=== PATIENT | female | born 1945 | race Caucasian/White ===

== ENCOUNTER 2018-10-29 12:13 | Emergency (ER) | payer MEDICARE, OTHER ==
[~2018-10-29] VITALS: Ht 154.9 cm; Wt 70.3 kg
--- NOTE | 2018-10-29 12:25 | NUR ---
SENT FROM URGENT CARE, C/O R SHOULDER DISLOCATION S/P GLF, -KO. PATIENT A/OX4, NO DISTRESS NOTED, NEEDS ATTENDED. KEPT COMFORTABLE.
[2018-10-29] MEDS ORDERED: PROPOFOL 0 ML IV ONE (12:50)
[2018-10-29] MEDS ORDERED: MIDAZOLAM HCL 2 MG/2ML VIAL IV ONE (13:00)
[2018-10-29] MEDS ORDERED: ONDANSETRON HCL/PF 4 MG/2 ML VIAL IVP ONE (13:00)
[2018-10-29] MEDS ORDERED: IV NS 0.9% 1,000 ML BAG IV ONE (13:00)
[2018-10-29] MEDS ORDERED: FENTANYL PF 100MCG/2ML AMPUL IV ONE (13:00)
[2018-10-29] MEDS ORDERED: MORPHINE SULFATE INJ 2 MG/ML DISP.SYRIN IV ONE (13:00)
[2018-10-29] MEDS ORDERED: MIDAZOLAM HCL 5 MG/5ML VIAL ONE (13:02)
[2018-10-29] MEDS ORDERED: FENTANYL PF 100MCG/2ML AMPUL ONE (13:02)
[2018-10-29] MEDS ORDERED: ONDANSETRON HCL/PF 4 MG/2 ML VIAL ONE (13:02)
[2018-10-29] MEDS ORDERED: MORPHINE SULFATE INJ 4 MG/ML DISP.SYRIN ONE (13:03)
[2018-10-29] MEDS ORDERED: KETAMINE HCL (500MG/10ML) 50 MG/ML VIAL ONE (13:22)
--- NOTE | 2018-10-29 13:28 | NUR ---
2L OF NASAL CANNULA ADMINISTERED
[2018-10-29] MEDS ORDERED: KETAMINE HCL(200MG/20ML) 10 MG/ML VIAL IV ONE (13:30)
--- NOTE | 2018-10-29 13:30 | NUR ---
DR. MODI EXPLAINED PROCEDURE, CONSENT SIGNED BY SPOUSE FOR RIGHT SHOULDER REDUCTION. WITNESSED BY AN RN.
--- NOTE | 2018-10-29 14:58 | NUR ---
patient ambulatory with a steady gait. shoulder sling applied on right shoulder. IV removed. Catheter intact and site benign. Pressure and 4x4 applied to site. No bleeding noted.Patient discharged to home in stable condition. Written and verbal after care instructions given. Patient verbalizes understanding of instruction.
[2018-10-29 15:00] VITALS: BP 128/81
== END 2018-10-29 15:01 | disposition home or self-care (01) ==
LOC: ER 12:17
DX: S43.014A Anterior dislocation of right humerus, initial encounter (principal); I10 Essential (primary) hypertension; Z95.5 Presence of coronary angioplasty implant and graft; Z98.890 Other specified postprocedural states; W01.0XXA Fall on same level from slipping, tripping and stumbling without subsequent striking against object, initial encounter; Y93.89 Activity, other specified; Y92.89 Other specified places as the place of occurrence of the external cause; Y99.8 Other external cause status
CPT/HCPCS: 23650; 73020; 73030; 96374; 96375; 99152; 99285; J2250; J2405; J7030; G0500; J2270; J2704; J3010; J3490

== ENCOUNTER 2018-11-03 09:03 | Emergency (ER) | payer MEDICARE, OTHER ==
[~2018-11-03] VITALS: Ht 152.4 cm; Wt 71.7 kg
--- NOTE | 2018-11-03 09:13 | NUR ---
ANTOINETTE, C/O "WORSENING RIGHT ARM PAIN", WAS HERE LAST THURS FOR RIGHT SHOULDER CLOSED REDUCTION. TO ER BED 10, HOOKED TO MONITOR, PROVIDED W WARM BLANKET, AWAITING MD TREJO.
--- NOTE | 2018-11-03 09:24 | NUR ---
DR ACOSTA AT BEDSIDE
[2018-11-03] MEDS ORDERED: KETOROLAC TROMETHAMINE INJ 60 MG/2 ML VIAL IM ONE ×2 (09:30→09:32)
[2018-11-03 10:35] VITALS: BP 132/87
--- NOTE | 2018-11-03 10:35 | NUR ---
Patient discharged to home in stable condition. Written and verbal after care instructions given. Patient verbalizes understanding of instruction.
== END 2018-11-03 10:35 | disposition home or self-care (01) ==
LOC: ER 09:05
DX: M25.511 Pain in right shoulder (principal); I10 Essential (primary) hypertension; Z95.818 Presence of other cardiac implants and grafts
CPT/HCPCS: 73030; 96372; 99283; J1885

== ENCOUNTER 2022-02-12 10:44 | Inpatient (IN) | payer MEDICARE, OTHER ==
[~2022-02-12] VITALS: Ht 152.4 cm; Wt 72.6 kg
--- NOTE | 2022-02-12 10:50 | NUR ---
DR RAYA W/ PT FOR EVAL
[2022-02-12] MEDS ORDERED: FUROSEMIDE 40 MG/4 ML VIAL IV ONE (11:00)
--- NOTE | 2022-02-12 11:00 | NUR ---
BIB RA 88 FROM URGENT CARE FOR SOB/LOW O2SAT (89 ON RA). PLACED IN BED, AAOX4, BREATHING NON-LABORED SATURATING AT 97% WITH 3LIT O2 VIA NC.
[2022-02-12] MEDS ORDERED: FUROSEMIDE 40 MG/4 ML VIAL ONE (11:03)
--- NOTE | 2022-02-12 11:08 | NUR ---
TECH AT BEDSIDE FOR EKG
--- NOTE | 2022-02-12 11:16 | NUR ---
ARMOR RECONNAISSANCE SPECIALIST AT BEDSIDE FOR XRAY
--- NOTE | 2022-02-12 11:16 | NUR ---
RAPID COVID AND RAPID FLU SWABS OBTAINED AND SENT TO LAB
[2022-02-12 11:44] LABS: BASOPHILS % (AUTO) 0.4 % (0.0-2.0); EOSINOPHILS % (AUTO) 1.3 % (0.0-6.0); HEMATOCRIT 36 % (33-45); HEMOGLOBIN 11.4 g/dL (11.5-14.8); LYMPHOCYTES # (AUTO) 1.4 K/uL (0.8-4.8); LYMPHOCYTES % (AUTO) 15.5 % (20.0-44.0); MEAN CORPUSCULAR HGB CONC 32 g/dl (31.0-36.0); MEAN CORPUSCULAR VOLUME 91 fL (82-100); MONOCYTES # (AUTO) 0.7 K/uL (0.1-1.30); NEUTROPHILS # (AUTO) 6.6 K/uL (1.8-8.9); NEUTROPHILS % (AUTO) 74.8 % (43.0-81.0); PLATELET COUNT (AUTO) 183 K/uL (150-450); RED BLOOD CELL COUNT(AUTO) 3.89 MIL/uL (4.0-5.2); WHITE BLOOD COUNT (AUTO) 8.8 K/uL (4.3-11.0)
[2022-02-12] MEDS ORDERED: LEVO25TA9 PO (11:45)
[2022-02-12] MEDS ORDERED: METO25TA4 PO (11:45)
[2022-02-12] MEDS ORDERED: GUAI120L56 PO (11:45)
[2022-02-12] MEDS ORDERED: ESOM40CA52 PO (11:45)
[2022-02-12] MEDS ORDERED: INSU100I14 SQ (11:45)
[2022-02-12] MEDS ORDERED: IPRA42SP (11:45)
[2022-02-12] MEDS ORDERED: AMLO-212 PO (11:45)
[2022-02-12] MEDS ORDERED: CLON1TAB12 PO (11:45)
[2022-02-12] MEDS ORDERED: INSU100V7 SQ (11:45)
[2022-02-12] MEDS ORDERED: SEMA1PEN SQ (11:45)
[2022-02-12] MEDS ORDERED: AZIT250T13 PO (11:45)
[2022-02-12] MEDS ORDERED: RIVA10TA PO (11:45)
--- NOTE | 2022-02-12 11:55 | NUR ---
CALLED AND LEFT CONTACT NUMBER. [phone]
[2022-02-12 12:16] LABS: CALCIUM, SERUM 8.7 mg/dL (8.5-10.1); CARBON DIOXIDE 28 mmol/L (21-32); CHLORIDE 105 mmol/L (98-107); CREATININE 0.9 mg/dL (0.6-1.3); GLUCOSE 197 mg/dL (74-106); POTASSIUM 3.8 mmol/L (3.5-5.1); SODIUM SERUM 140 mmol/L (136-145); UREA NITROGEN, BLOOD 17 mg/dL (7-18)
[2022-02-12 12:38] LABS: ALANINE AMINOTRANSFERASE 15 U/L (12-78); ALBUMIN 2.8 g/dL (3.4-5.0); ALKALINE PHOSPHATASE 81 U/L (46-116); ASPARTATE AMINOTRANSFERASE 18 U/L (15-37); BILIRUBIN,DIRECT 0.1 mg/dL (0.0-0.2); BILIRUBIN,TOTAL 0.3 mg/dL (0.2-1.0); TOTAL PROTEIN, SERUM 6.3 g/dL (6.4-8.2)
[2022-02-12] MEDS ORDERED: MAG HYDROX/AL HYDROX/SIMETH 30 ML UDC PO PRN (13:30)
[2022-02-12] MEDS ORDERED: ONDANSETRON HCL/PF 4 MG/2 ML VIAL IVP PRN (13:30)
[2022-02-12] MEDS ORDERED: Z GUARD REMEDY 4 OZ OINT TP PRN (13:30)
[2022-02-12] MEDS ORDERED: ACETAMINOPHEN 325 MG TABLET PO PRN (13:30)
[2022-02-12] MEDS ORDERED: MAGNESIUM HYDROXIDE 30 ML UDC PO PRN (13:30)
[2022-02-12] MEDS ORDERED: DEXTROSE 50%-WATER 50 ML DISP.SYRIN IV PRN (14:00)
--- NOTE | 2022-02-12 14:02 | NUR ---
ROOM 310-1
--- NOTE | 2022-02-12 14:08 | NUR ---
SCAR HARDEN, FOR REPORT
--- NOTE | 2022-02-12 14:13 | NUR ---
PT REPORT GIVEN TO SCAR HARDEN
--- NOTE | 2022-02-12 14:48 | NUR ---
PT TRANSFERRED TO UNIT VIA ESTEFANI ACLS PROTOCOL. WARM HANDOFF GIVEN TO RN ASSIGNED.
[2022-02-12 14:50] VITALS: BP 131/81
--- NOTE | 2022-02-12 14:50 | NUR ---
SURVEILLANCE SYSTEMS ENGINEER NOTE PATIENT TRANSFERRED FROM ED VIA GURNEY WITH NO SIGN OF DISTRESS. ORIENTED PATIENT TO ROOM SET UP AND EDUCATED PATIENT ON THE USE OF CALL LIGHT. 77 Y/O FEMALE LIVES AT HOME WITH HER BROUGHT TO ED FOR COMPLAINING OF SOB. SHES BEING ADMITTED TELE FOR CHF. SHE HAS NKA. COVID NEGATIVE. PT HAS HAD COVID VACCINES. PRESENTS A/OX4. PT IS ON NC RECEIVING 3LPM. NO COMPLAINS OF PAIN. VS TAKEN, STABLE AND RECORDED. PLACED PT ON CARDIAC EXTERNAL MONITOR. PATIENT IS INTERACTIVE, IV ACCESS R HAND #20G, PATENT AND INTACT, SL. SKIN ASSESSMENT DONE, SKIN INTACT, BLE EDEMA WITH BRUISES AND DRYNESS NOTED, PICTURES TAKEN AND RECORDED IN CHART. ALL SAFETY PRECAUTIONS IN PLACE WITH BED IN LOWEST AND LOCKED POSITION, TABLE AND CALL LIGHT WITHIN EASY REACH. SIDE RAILS UP X 2. BED ALARM ON. WILL CONTINUE TO MONITOR.
[2022-02-12 16:00] VITALS: BP 131/81
[2022-02-12] MEDS ORDERED: RIVAROXABAN 10 MG TABLET PO SCH (17:00)
[2022-02-12] MEDS: FUROSEMIDE 20 MG/2 ML VIAL IV SCH ×2 (17:00→17:17)
[2022-02-12] MEDS ORDERED: methylPREDNISolone (4MG) 4 MG TABLET PO ONE (17:00)
--- NOTE | 2022-02-12 17:00 | NUR ---
RN NOTE PT REFUSED LASIX DOSE FOR 1700. OFFERED AND EXPLAINED THE RISKS AND BENEFITS AND THE USE OF MEDICATION. STILL REFUSING, STATED MAKING HER GO TO BATHROOM ALL NIGHT AND SHE NEEDS TO SLEEP. WILL CONTINUE TO MONITOR.
[2022-02-12] MEDS ORDERED: AZITHROMYCIN 500 MG in IV D5W 250 ML IV SCH (18:00)
[2022-02-12] MEDS: BLOOD SUGAR DIAGNOSTIC 1 EACH STRIP IN SCH ×2 (18:07→22:00)
[2022-02-12] MEDS: INSULIN REGULAR, HUMAN 100 UNIT/ML 3 ML VIAL SQ PRN ×2 (18:09→23:13)
--- NOTE | 2022-02-12 19:10 | NUR ---
BOAT ENGINE MECHANIC CLOSING NOTE PATIENT SLEEPING IN BED, EASY TO AROUSE. A/OX4, ABLE TO MAKE NEEDS KNOWN. IV ACCESS IN LEFT FOREARM #22G, AND RIGHT HAND #20G; PATENT AND FLUSHES WELL. ON EXTERNAL TELE MONITOR .NO CARDIAC DISTRESS NOTED. ON NC WITH 3LPM WITH BREATHING EVEN AND UNLABORED. DUE MEDS GIVEN. SAFETY PRECAUTIONS IN PLACE WITH BED IN LOWEST AND LOCKED POSITION, CALL LIGHT WITHIN REACH. ALL NEEDS MET AT THIS TIME. WILL ENDORSE SPIKE TO NIGHT NURSE.
[2022-02-12 20:00] VITALS: BP 143/88
--- NOTE | 2022-02-12 20:00 | NUR ---
METAL DRILL PRESS OPERATOR OPENING NOTES: RECEIVED PATIENT AWAKEIN BED ACCOMPANIED Y FAMILY, BED IN LOW POSITION, CALL LIGHTS WITHIN REACH, NO COMPLAIN OF PAIN AND DISCOMFORT AT THIS TIME , ON O2 INHALATION AT 3LPM SATURATING WELL, PATIENT ON TLEE MONITOR- SR-91 NO SYMPTOMS WAS OBSERVED, PATIENT IS A/O X3 ABLE TO MAKE NEEDS KNOWN, PATIENT KEPT CLEAN AND DRY ALL NEEDS MET WILL CONTINUE TO MONITOR.
[2022-02-12] MEDS ORDERED: clonazePAM 1 MG TABLET PO SCH (22:00)
--- NOTE | 2022-02-12 23:27 | NUR ---
RN NOTES: BLOOD SUGAR-352/8 UNITS OF REGULAR INSULIN GIVEN PER SLIDING SCALE.
[2022-02-13 04:00] VITALS: BP 124/70
[2022-02-13 06:30] LABS: BASOPHILS % (AUTO) 0.5 % (0.0-2.0); EOSINOPHILS % (AUTO) 0.6 % (0.0-6.0); HEMATOCRIT 32 % (33-45); HEMOGLOBIN 10.6 g/dL (11.5-14.8); LYMPHOCYTES # (AUTO) 0.9 K/uL (0.8-4.8); LYMPHOCYTES % (AUTO) 12.3 % (20.0-44.0); MEAN CORPUSCULAR HGB CONC 33 g/dl (31.0-36.0); MEAN CORPUSCULAR VOLUME 90 fL (82-100); MONOCYTES # (AUTO) 0.5 K/uL (0.1-1.30); MONOCYTES % (AUTO) 6.6 % (2.0-12.0); NEUTROPHILS # (AUTO) 6.2 K/uL (1.8-8.9); PLATELET COUNT (AUTO) 191 K/uL (150-450); RED BLOOD CELL COUNT(AUTO) 3.59 MIL/uL (4.0-5.2); WHITE BLOOD COUNT (AUTO) 7.7 K/uL (4.3-11.0)
[2022-02-13 06:32] LABS: CALCIUM, SERUM 8.4 mg/dL (8.5-10.1); CARBON DIOXIDE 32 mmol/L (21-32); CHLORIDE 102 mmol/L (98-107); CREATININE 0.8 mg/dL (0.6-1.3); GLUCOSE 260 mg/dL (74-106); MAGNESIUM 2.2 mg/dL (1.8-2.4); POTASSIUM 3.4 mmol/L (3.5-5.1); SODIUM SERUM 140 mmol/L (136-145); UREA NITROGEN, BLOOD 17 mg/dL (7-18)
--- NOTE | 2022-02-13 06:43 | NUR ---
CHIEF NURSE ANESTHETIST CLOSING NOTES: PATIENT SLEEP IN BED COMFORTABLY ,BED IN LOW POSITION, CALL LIGHTS WITHIN REACH, NO COMPLAIN OF PAIN AND DISCOMFORT AT THIS TIME, ON O2 INHALATION AT 2LPM SATURATING WELL, PATIENT IS A/OX3 AMBULATORY, ABLE TO MAKE NEEDS KNOWN ON TELE MONITOR- SR-94, PATIENT KEPT CLEAN AND DRY ALL NEEDS MET ENDORSE TO INCOMING SHIFT.
[2022-02-13] MEDS ORDERED: LEVOTHYROXINE SODIUM 25 MCG TABLET PO SCH (07:30)
--- NOTE | 2022-02-13 07:30 | NUR ---
CAMPAIGN ANALYST OPENING NOTE PATIENT SLEEPING IN BED, EASY TO AROUSE. A/OX4, ABLE TO MAKE NEEDS KNOWN. IV ACCESS LEFT HAND #22G ; PATENT AND FLUSHES WELL. ON EXTERNAL TELE MONITOR READING SR 87 BPM. NO CARDIAC DISTRESS NOTED. ON NC WITH 2LPM WITH BREATHING EVEN AND UNLABORED. SAFETY PRECAUTIONS IN PLACE WITH BED IN LOWEST AND LOCKED POSITION, CALL LIGHT WITHIN REACH. ALL NEEDS MET AT THIS TIME. WILL CONTINUE TO MONITOR.
[2022-02-13] MEDS: BLOOD SUGAR DIAGNOSTIC 1 EACH STRIP IN SCH ×2 (07:47→11:28)
[2022-02-13] MEDS: INSULIN REGULAR, HUMAN 100 UNIT/ML 3 ML VIAL SQ PRN ×2 (07:51→12:07)
[2022-02-13 08:00] VITALS: BP 143/75
[2022-02-13 08:01] LABS: CHOLESTEROL 99 mg/dL (<200); HDL CHOLESTEROL 52 mg/dL (40-60); LDL 38 mg/dL (0-99); TRIGLYCERIDES 154 mg/dL (30-150)
--- NOTE | 2022-02-13 08:24 | NUR ---
WOUND CARE CONSULT: PT SITTING IN A CHAIR IN HER ROOM. DRY SKIN NOTED TO LOWER LEGS, PRESENT ON ADMISSION. RECOMMENDATIONS MADE FOR SKIN PROTECTION. DISCUSSED WITH NURSING STAFF. PT IS AMBULATORY AND DENIES ANY OTHER SKIN ISSUES. MD IN AGREEMENT WITH PLAN OF CARE. Addendum: 02/13/22 at 0955 by MILEY MOISE WNDNU PT SEEN FOR ASSESSMENT OF BUTTOCKS SKIN AND NOTED TO HAVE SCANT RECTAL BLEEDING. PT STATES HAS HEMORRHOIDS. WILL SEE PRN.
[2022-02-13] MEDS: FUROSEMIDE 20 MG/2 ML VIAL IV SCH (08:55)
[2022-02-13] MEDS ORDERED: INSULIN GLARGINE, 100 UNIT/ML CARTRIDGE SQ SCH (09:00)
[2022-02-13] MEDS ORDERED: METOPROLOL SUCCINATE 25 MG TAB.SR.24H PO SCH (09:00)
[2022-02-13] MEDS ORDERED: POTASSIUM CHLORIDE 20 MEQ TAB.PRT.SR PO ONE (09:00)
[2022-02-13] MEDS ORDERED: AMLODIPINE BESYLATE 5 MG TABLET PO SCH (09:00)
[2022-02-13] MEDS ORDERED: MINERAL OIL/PETROLATUM,WHITE 120 GM JAR TP SCH (09:00)
[2022-02-13 09:27] LABS: IRON, SERUM 23 ug/dl (50-175); TOTAL IRON BINDING CAPACITY 214 ug/dl (250-450)
[2022-02-13 10:13] LABS: FERRITIN 94 ng/mL (8-388)
[2022-02-13 12:00] VITALS: BP 128/67
[2022-02-13] MEDS ORDERED: LEVO50TA8 PO (13:31)
--- NOTE | 2022-02-13 15:10 | NUR ---
BATCH TRUCKER NOTE PATIENT DISCHARGE IN STABLE MEDICAL CONDITION. A/OX4. VS TAKEN, STABLE AND RECORDED. NO IV ACCESS. NAME ARM BAND REMOVED. EXTERNAL HEARING THERAPY DIRECTOR REMOVED AND RETURNED TO TELE DESK. ALL BELONGINGS CHECKED AND BELONGING LIST SIGNED. HEALTH TEACHING AND DISCHARGE INSTRUCTION GIVEN TO THE PATIENT AND VERBALIZED UNDERSTANDING. PATIENT LEFT VIA PRIVATE CAR WITH NO SIGNS OF DISTRESS, WITH HER . CHARGE NURSE AWARE OF DISCHARGE.
== END 2022-02-13 15:50 | disposition home or self-care (01) | DRG 291 ==
LOC: ER 10:49 → TELE 14:19 → MED 02-13 14:32
PROVIDERS: ADMIT Nurse Practitioner Acute Care; ATTEND Nurse Practitioner Acute Care
DX: I11.0 Hypertensive heart disease with heart failure (principal); I50.33 Acute on chronic diastolic (congestive) heart failure; E44.1 Mild protein-calorie malnutrition; J40 Bronchitis, not specified as acute or chronic; D50.9 Iron deficiency anemia, unspecified; E03.9 Hypothyroidism, unspecified; E11.9 Type 2 diabetes mellitus without complications; E66.9 Obesity, unspecified; Z68.31 Body mass index [BMI] 31.0-31.9, adult; E88.09 Other disorders of plasma-protein metabolism, not elsewhere classified; G89.4 Chronic pain syndrome; Z86.711 Personal history of pulmonary embolism; K21.9 Gastro-esophageal reflux disease without esophagitis; R09.02 Hypoxemia; Z79.01 Long term (current) use of anticoagulants; Z79.4 Long term (current) use of insulin; Z96.643 Presence of artificial hip joint, bilateral; Z20.822 Contact with and (suspected) exposure to COVID-19; M54.50 Low back pain, unspecified; R94.6 Abnormal results of thyroid function studies
CPT/HCPCS: 36415; 71045-TC; 80048-TC; 80061-TC; 80076-TC; 82728-TC; 82962-TC; 83540-TC; 83735-TC; 83880; 84100-TC; 84439-TC; 84443-TC; 84484-TC; 85025-TC; 87081-TC; 93307-TC; 97116-TC; 97530-TC; C9803; G0378; J0456; J1815; J1940; J7050; J7060; J7509

== ENCOUNTER 2022-05-15 16:29 | Emergency (ER) | payer MEDICARE, OTHER ==
[~2022-05-15] VITALS: Ht 152.4 cm; Wt 77.6 kg
[~2022-05-15 16:29] MED LIST: AMLO-212 PO; AZIT250T13 PO; CLON1TAB12 PO; ESOM40CA52 PO; GUAI120L56 PO; INSU100I14 SQ; INSU100V7 SQ; IPRA42SP; LEVO25TA9 PO; LEVO50TA8 PO; METO25TA4 PO; RIVA10TA PO; SEMA1PEN SQ
--- NOTE | 2022-05-15 16:30 | NUR ---
RECEVED PT 77CAME FROM HOME C/O PAIN IN BOTH KNEE FOR ONE YRS DINESES HX TRUMA NO SWALLE NO EDEMA NO DIFORMITY
--- NOTE | 2022-05-15 17:00 | NUR ---
SEEN BY DR. REYES
[2022-05-15] MEDS ORDERED: KETOROLAC TROMETHAMINE INJ 60 MG/2 ML VIAL IM ONE (17:30)
[2022-05-15] MEDS ORDERED: KETOROLAC TROMETHAMINE INJ 30 MG/ML VIAL ONE (17:39)
--- NOTE | 2022-05-15 17:45 | NUR ---
TORADOLE 30 MG IM GIVEN
--- NOTE | 2022-05-15 18:15 | NUR ---
ER TORDOL WAS GIVEN PT DINESES PAIN AFT
--- NOTE | 2022-05-15 18:20 | NUR ---
Patient discharged to home in stable condition. Written and verbal after care instructions given. Patient verbalizes understanding of instruction.
[2022-05-15] MEDS ORDERED: NAPR-1192 PO (18:26)
[2022-05-15 19:43] VITALS: BP 151/88
== END 2022-05-15 19:43 | disposition home or self-care (01) ==
LOC: ER 16:33
DX: M25.562 Pain in left knee (principal); M25.561 Pain in right knee; I10 Essential (primary) hypertension; E11.9 Type 2 diabetes mellitus without complications; Z95.1 Presence of aortocoronary bypass graft; Z79.899 Other long term (current) drug therapy; Z79.4 Long term (current) use of insulin
CPT/HCPCS: 99285; 96372; J1885

== ENCOUNTER 2023-07-17 11:40 | Inpatient (IN) | payer MEDICARE, OTHER ==
[~2023-07-17] VITALS: Ht 152.4 cm; Wt 76.7 kg
[~2023-07-17 11:40] MED LIST changes: +CARB1TAB21 PO
[2023-07-17] MEDS ORDERED: ONDANSETRON HCL/PF 4 MG/2 ML VIAL ONE (12:29)
[2023-07-17] MEDS: IV NS 0.9% 1,000 ML BAG IV ONE (12:45)
[2023-07-17] MEDS: ONDANSETRON HCL/PF 4 MG/2 ML VIAL IVP ONE (12:46)
[2023-07-17 13:19] LABS: ALANINE AMINOTRANSFERASE 31 U/L (12-78); ALBUMIN 2.9 g/dL (3.4-5.0); ALKALINE PHOSPHATASE 119 U/L (46-116); ASPARTATE AMINOTRANSFERASE 34 U/L (15-37); BILIRUBIN,DIRECT 0.1 mg/dL (0.0-0.2); BILIRUBIN,TOTAL 0.2 mg/dL (0.2-1.0); CALCIUM, SERUM 9.3 mg/dL (8.5-10.1); CARBON DIOXIDE 31 mmol/L (21-32); CHLORIDE 101 mmol/L (98-107); CREATININE 1.1 mg/dL (0.6-1.3); GLUCOSE 312 mg/dL (74-106); POTASSIUM 3.8 mmol/L (3.5-5.1); SODIUM SERUM 140 mmol/L (136-145); TOTAL PROTEIN, SERUM 6.5 g/dL (6.4-8.2); UREA NITROGEN, BLOOD 35 mg/dL (7-18)
[2023-07-17 13:22] LABS: BASOPHILS # (AUTO) 0.1 K/uL (0.0-0.2); BASOPHILS % (AUTO) 0.7 % (0.0-2.0); EOSINOPHILS # (AUTO) 0.1 K/uL (0.0-0.7); EOSINOPHILS % (AUTO) 1.4 % (0.0-6.0); HEMATOCRIT 38 % (33-45); LYMPHOCYTES # (AUTO) 1.6 K/uL (0.8-4.8); LYMPHOCYTES % (AUTO) 18.4 % (20.0-44.0); MEAN CORPUSCULAR HEMOGLOBIN 30 PG (26.0-33.0); MEAN CORPUSCULAR HGB CONC 34 g/dl (31.0-36.0); MEAN CORPUSCULAR VOLUME 89 fL (82-100); MONOCYTES # (AUTO) 0.6 K/uL (0.1-1.30); MONOCYTES % (AUTO) 7.1 % (2.0-12.0); NEUTROPHILS # (AUTO) 6.1 K/uL (1.8-8.9); NEUTROPHILS % (AUTO) 72.4 % (43.0-81.0); PLATELET COUNT (AUTO) 190 K/uL (150-450); RED BLOOD CELL COUNT(AUTO) 4.32 MIL/uL (4.0-5.2); RED CELL DISTRIBUTION WIDTH 15.9 % (11.5-15.0); WHITE BLOOD COUNT (AUTO) 8.5 K/uL (4.3-11.0)
[2023-07-17 13:27] LABS: LACTIC ACID 2.1 mmol/L (0.4-2.0)
[2023-07-17] MEDS: PIPERACILLIN /TAZOBACTAM 3.375 G in IV D5W 50 ML IV ONE (13:30)
[2023-07-17 13:33] LABS: APPEARANCE,URINE CLEAR (CLEAR); BILIRUBIN,URINE NEGATIVE (NEGATIVE); BLOOD, URINE NEGATIVE Ery/uL (NEGATIVE); COLOR,URINE YELLOW (YELLOW); KETONES,URINE NEGATIVE (NEGATIVE); LEUKOCYTE ESTERASE ,URINE NEGATIVE (NEGATIVE); NITRITE, URINE NEGATIVE (NEGATIVE); PROTEIN,URINE NEGATIVE (NEGATIVE); UGLUCOSE 3+ mg/dL (NEGATIVE); UROBILINOGEN,URINE 0.2 EU/dL (0.2)
[2023-07-17 13:40] LABS: ADD URINE CULTURE NO; BACTERIA,URINE Rare /HPF (None Seen); RBC,URINE 0-2 /HPF (0-2); SQUAMOUS EPITHELIAL CELL,UR Rare /HPF (None Seen); WBC,URINE 0-2 /HPF (0-3)
[2023-07-17 13:40] LABS: INR 0.95 (0.91-1.10); PARTIAL THROMBOPLASTIN TIME 23.1 SEC (24.3-34.3); PROTHROMBIN TIME 10.1 SECS (9.2-11.1)
[2023-07-17] MEDS ORDERED: VALS80TA2 PO (14:38)
[2023-07-17] MEDS ORDERED: BUME1TAB8 PO (14:38)
[2023-07-17] MEDS ORDERED: ASPI-1420 PO (14:38)
[2023-07-17] MEDS ORDERED: [UNRECOGNIZED DRUG - OTHER] EACHEYE (14:38)
[2023-07-17] MEDS ORDERED: ESCI10TA PO (14:38)
[2023-07-17] MEDS ORDERED: GABA300C PO (14:38)
[2023-07-17] MEDS ORDERED: BUPR1FIL23 SL (14:38)
[2023-07-17] MEDS ORDERED: DOXE10OR2 PO (14:38)
[2023-07-17] MEDS ORDERED: DOXEPIN HCL 10 MG CAPSULE PO PRN (15:30)
[2023-07-17] MEDS ORDERED: ENOXAPARIN SODIUM 30 MG/0.3 ML DISP.SYRIN SQ SCH (15:30)
[2023-07-17] MEDS ORDERED: MAGNESIUM HYDROXIDE 30 ML UDC PO PRN (15:30)
[2023-07-17] MEDS ORDERED: ZOLPIDEM TARTRATE 5 MG TABLET PO PRN (15:30)
[2023-07-17] MEDS ORDERED: Z GUARD REMEDY 4 OZ OINT TP PRN (15:30)
[2023-07-17] MEDS ORDERED: DEXTROSE 50%-WATER 50 ML DISP.SYRIN IV PRN (15:30)
[2023-07-17 16:00] VITALS: BP 100/66; TEMP 97.7; O2SAT 95
[2023-07-17] MEDS: IV NS 0.9% 1,000 ML IV PRN (16:06)
[2023-07-17] MEDS: CEFTRIAXONE 1 G in IV D5W 50 ML IV SCH (16:08)
[2023-07-17 16:26] LABS: THYROID STIMULATING HORMONE 1.485 uIU/mL (0.358-3.74)
[2023-07-17] MEDS: GABAPENTIN 300 MG CAPSULE PO SCH (16:52)
[2023-07-17] MEDS: BLOOD SUGAR DIAGNOSTIC 1 EACH STRIP VI SCH (17:00)
[2023-07-17] MEDS: RIVAROXABAN 10 MG TABLET PO SCH (17:36)
[2023-07-17] MEDS: AZITHROMYCIN 500 MG in IV D5W 250 ML IV SCH (18:12)
[2023-07-17 20:00] VITALS: BP 97/60; TEMP 97.7; O2SAT 94
[2023-07-17 20:42] VITALS: BP 97/60; TEMP 97.7; O2SAT 94
[2023-07-17 20:52] VITALS: BP 108/59; O2SAT 94
[2023-07-17] MEDS: clonazePAM 1 MG TABLET PO SCH (21:24)
[2023-07-17] MEDS: *INSULIN REGULAR(HUMULIN R)HUM 100 UNIT/ML VIAL SQ PRN (21:36)
[2023-07-18 00:44] VITALS: BP 113/68; TEMP 97.3; O2SAT 97
[2023-07-18 04:44] VITALS: BP 101/60; TEMP 97.7; O2SAT 97
[2023-07-18 05:19] VITALS: O2SAT 98
[2023-07-18] MEDS: INSULIN REGULAR, HUMAN 100 UNIT/ML 3 ML VIAL SQ PRN (06:29)
[2023-07-18 07:00] VITALS: BP 118/64; TEMP 97.9; O2SAT 98
[2023-07-18 07:33] LABS: BASOPHILS # (AUTO) 0.1 K/uL (0.0-0.2); BASOPHILS % (AUTO) 0.8 % (0.0-2.0); EOSINOPHILS # (AUTO) 0.1 K/uL (0.0-0.7); EOSINOPHILS % (AUTO) 1.2 % (0.0-6.0); HEMATOCRIT 36 % (33-45); HEMOGLOBIN 11.7 g/dL (11.5-14.8); LYMPHOCYTES # (AUTO) 1.8 K/uL (0.8-4.8); LYMPHOCYTES % (AUTO) 24.3 % (20.0-44.0); MEAN CORPUSCULAR HEMOGLOBIN 29 PG (26.0-33.0); MEAN CORPUSCULAR HGB CONC 33 g/dl (31.0-36.0); MEAN CORPUSCULAR VOLUME 89 fL (82-100); MONOCYTES # (AUTO) 0.6 K/uL (0.1-1.30); MONOCYTES % (AUTO) 8.1 % (2.0-12.0); NEUTROPHILS # (AUTO) 4.9 K/uL (1.8-8.9); NEUTROPHILS % (AUTO) 65.6 % (43.0-81.0); PLATELET COUNT (AUTO) 157 K/uL (150-450); RED BLOOD CELL COUNT(AUTO) 4.02 MIL/uL (4.0-5.2); RED CELL DISTRIBUTION WIDTH 16.4 % (11.5-15.0); WHITE BLOOD COUNT (AUTO) 7.4 K/uL (4.3-11.0)
[2023-07-18 08:19] LABS: CREATININE 0.7 mg/dL (0.6-1.3); PHOSPHORUS 3.1 mg/dL (2.5-4.9); POTASSIUM 3.8 mmol/L (3.5-5.1)
[2023-07-18] MEDS: PANTOPRAZOLE 40 MG TABLET.DR PO SCH (08:40)
[2023-07-18] MEDS: ESCITALOPRAM OXALATE (10 MG) 10 MG TABLET PO SCH (08:40)
[2023-07-18] MEDS: ASPIRIN EC 81 MG TABLET.DR PO SCH (08:41)
[2023-07-18] MEDS: INSULIN GLARGINE, 100 UNIT/ML CARTRIDGE SQ SCH (08:43)
[2023-07-18] MEDS: MAG HYDROX/AL HYDROX/SIMETH 30 ML UDC PO PRN (11:01)
[2023-07-18] MEDS: ACETAMINOPHEN 325 MG TABLET PO PRN (11:01)
[2023-07-18 16:00] VITALS: BP 160/77; TEMP 98.6; O2SAT 93
[2023-07-18] MEDS: ONDANSETRON HCL/PF 4 MG/2 ML VIAL IVP PRN (17:55)
[2023-07-18 20:00] VITALS: BP 139/67; TEMP 98.4; O2SAT 92
[2023-07-19 06:37] LABS: BASOPHILS % (AUTO) 0.7 % (0.0-2.0); EOSINOPHILS # (AUTO) 0.1 K/uL (0.0-0.7); EOSINOPHILS % (AUTO) 2.7 % (0.0-6.0); HEMATOCRIT 35 % (33-45); HEMOGLOBIN 11.7 g/dL (11.5-14.8); LYMPHOCYTES # (AUTO) 1.2 K/uL (0.8-4.8); LYMPHOCYTES % (AUTO) 21.7 % (20.0-44.0); MEAN CORPUSCULAR HEMOGLOBIN 30 PG (26.0-33.0); MEAN CORPUSCULAR HGB CONC 33 g/dl (31.0-36.0); MEAN CORPUSCULAR VOLUME 89 fL (82-100); MONOCYTES # (AUTO) 0.4 K/uL (0.1-1.30); MONOCYTES % (AUTO) 7.8 % (2.0-12.0); NEUTROPHILS # (AUTO) 3.6 K/uL (1.8-8.9); NEUTROPHILS % (AUTO) 67.1 % (43.0-81.0); PLATELET COUNT (AUTO) 153 K/uL (150-450); RED BLOOD CELL COUNT(AUTO) 3.94 MIL/uL (4.0-5.2); RED CELL DISTRIBUTION WIDTH 15.7 % (11.5-15.0); WHITE BLOOD COUNT (AUTO) 5.4 K/uL (4.3-11.0)
[2023-07-19 06:55] LABS: ALBUMIN 2.2 g/dL (3.4-5.0); BILIRUBIN,TOTAL 0.3 mg/dL (0.2-1.0); CALCIUM, SERUM 8.7 mg/dL (8.5-10.1); CREATININE 0.7 mg/dL (0.6-1.3); MAGNESIUM 2.4 mg/dL (1.8-2.4); PHOSPHORUS 2.6 mg/dL (2.5-4.9); TOTAL PROTEIN, SERUM 5.3 g/dL (6.4-8.2)
[2023-07-19 08:00] VITALS: BP 150/93; TEMP 98.1; O2SAT 95
[2023-07-19] MEDS: BUMETANIDE (1 MG) 1 MG TABLET PO SCH (11:31)
[2023-07-19] MEDS: METOPROLOL SUCCINATE 25 MG TAB.SR.24H PO SCH (11:32)
[2023-07-19] MEDS: VALSARTAN 80 MG TABLET PO SCH (11:32)
[2023-07-19] MEDS: AZITHROMYCIN 250 MG TABLET PO SCH (17:04)
[2023-07-19 20:00] VITALS: BP 143/69; TEMP 98.6; O2SAT 92
[2023-07-19] MEDS: AMLODIPINE BESYLATE 5 MG TABLET PO SCH (21:19)
[2023-07-20 07:00] VITALS: BP 141/88; TEMP 99; O2SAT 94
[2023-07-20] MEDS: HYDROCODONE/APAP 5/325MG TABLET PO PRN (11:15)
[2023-07-20] MEDS: KETOROLAC TROMETHAMINE INJ 30 MG/ML VIAL IV STA (12:42)
[2023-07-20 16:00] VITALS: BP 149/92; TEMP 98.9; O2SAT 94
[2023-07-20] MEDS: KETOROLAC TROMETHAMINE INJ 30 MG/ML VIAL IV ONE (18:14)
[2023-07-20 20:00] VITALS: BP 166/77; TEMP 98.4; O2SAT 95
[2023-07-21] MEDS: SUMATRIPTAN SUCCINATE 25 MG TABLET PO PRN (06:39)
[2023-07-21] MEDS ORDERED: SUMATRIPTAN SUCCINATE 100 MG TABLET PO PRN (07:00)
[2023-07-21 08:02] VITALS: O2SAT 97
[2023-07-21 08:15] VITALS: BP 146/89; TEMP 98.2; O2SAT 97
[2023-07-21] MEDS: VALSARTAN 80 MG TABLET PO SCH (08:51)
[2023-07-21] MEDS: METOPROLOL SUCCINATE 50 MG TAB.SR.24H PO SCH (08:52)
[2023-07-21 16:53] VITALS: BP_SYST 142; BP_SYST 147; BP_DIAS 78; TEMP 98.6; O2SAT 94
[2023-07-21 20:00] VITALS: BP 132/79; TEMP 98.2; O2SAT 93; O2SAT 95
[2023-07-22 04:52] VITALS: O2SAT 98
[2023-07-22 08:26] VITALS: BP 147/90; TEMP 98.3; O2SAT 96
[2023-07-22 08:27] VITALS: BP 147/90
[2023-07-22] MEDS ORDERED: CEFT1FRO2 IV (09:48)
[2023-07-22] MEDS ORDERED: SUMA25TA PO (09:48)
[2023-07-22] MEDS ORDERED: METO50TA7 PO (09:48)
[2023-07-22] MEDS ORDERED: VALS80TA31 PO (09:48)
[2023-07-22] MEDS ORDERED: Aspirin Ec PO (09:48)
[2023-07-22] MEDS ORDERED: PANT40TA49 PO (09:48)
[2023-07-22] MEDS ORDERED: INSU100V28 SQ (09:50)
[2023-07-22] MEDS ORDERED: *INS REG SQ (09:50)
[2023-07-22] MEDS ORDERED: LORAZEPAM INJ 2 MG/ML VIAL IV ONE ×2 (12:00)
[2023-07-22] MEDS: LORAZEPAM 1 MG TABLET PO ONE (12:09)
== END 2023-07-22 13:15 | DRG 871 ==
LOC: ER 12:25 → TELE 14:56 → MED 07-18 19:54
PROVIDERS: ATTEND Nurse Practitioner Acute Care
DX: A41.9 Sepsis, unspecified organism (principal); J15.9 Unspecified bacterial pneumonia; E44.0 Moderate protein-calorie malnutrition; E66.2 Morbid (severe) obesity with alveolar hypoventilation; E87.20 Acidosis, unspecified; I25.10 Atherosclerotic heart disease of native coronary artery without angina pectoris; Z95.5 Presence of coronary angioplasty implant and graft; E03.9 Hypothyroidism, unspecified; E11.65 Type 2 diabetes mellitus with hyperglycemia; E88.09 Other disorders of plasma-protein metabolism, not elsewhere classified; F41.9 Anxiety disorder, unspecified; G44.209 Tension-type headache, unspecified, not intractable; G89.29 Other chronic pain; Z79.01 Long term (current) use of anticoagulants; Z79.4 Long term (current) use of insulin; Z86.711 Personal history of pulmonary embolism; Z95.2 Presence of prosthetic heart valve; Z68.33 Body mass index [BMI] 33.0-33.9, adult; R53.1 Weakness; R26.89 Other abnormalities of gait and mobility; I10 Essential (primary) hypertension
CPT/HCPCS: 36415; 70450-TC; 71045-TC; 80048-TC; 80053-TC; 80061-TC; 80076-TC; 81001; 82962-TC; 83605-TC; 83735-TC; 84100-TC; 84443-TC; 84484-TC; 85025-TC; 85730-TC; 87040-TC; 87086-TC; 94760-TC; 94762-TC; 94799-TC; 97110-TC; 97112-TC; 97116-TC; 97530-TC; A4223; G0378; J0456; J0696; J1815; J1885; J2405; J2543; J7030; J7040; J7060

== ENCOUNTER 2023-09-22 08:21 | Inpatient (IN) | payer MEDICARE, OTHER ==
[~2023-09-22] VITALS: Ht 152.4 cm; Wt 66.8 kg
[~2023-09-22 08:21] MED LIST changes: +*INS REG SQ; -AZIT250T13 PO; +Aspirin Ec PO; +BUME1TAB8 PO; +BUPR1FIL23 SL; -CARB1TAB21 PO; +CEFT1FRO2 IV; +DOXE10OR2 PO; +ESCI10TA PO; +GABA300C PO; -GUAI120L56 PO; +INSU100V28 SQ; -IPRA42SP; -LEVO25TA9 PO; -LEVO50TA8 PO; +METO50TA7 PO; +PANT40TA49 PO; +SUMA25TA PO; +VALS80TA2 PO; +VALS80TA31 PO; +[UNRECOGNIZED DRUG - OTHER] EACHEYE
[2023-09-22] MEDS ORDERED: ONDANSETRON HCL/PF 4 MG/2 ML VIAL ONE (08:42)
[2023-09-22] MEDS ORDERED: MORPHINE SULFATE INJ 2 MG/ML DISP.SYRIN ONE (08:43)
[2023-09-22] MEDS: IV NS 0.9% 500 ML BAG IV ONE (08:47)
[2023-09-22] MEDS: MORPHINE SULFATE INJ 2 MG/ML DISP.SYRIN IV ONE (08:48)
[2023-09-22] MEDS: ONDANSETRON HCL/PF 4 MG/2 ML VIAL IVP ONE (08:48)
[2023-09-22] MEDS ORDERED: IV NS 0.9% 250 ML IV ONE (08:55)
[2023-09-22] MEDS ORDERED: IOHEXOL-300 100 ML VIAL IV ONE (08:55)
[2023-09-22 08:59] LABS: BASOPHILS # (AUTO) 0.1 K/uL (0.0-0.2); BASOPHILS % (AUTO) 0.8 % (0.0-2.0); EOSINOPHILS # (AUTO) 0.2 K/uL (0.0-0.7); EOSINOPHILS % (AUTO) 2.4 % (0.0-6.0); HEMATOCRIT 41 % (33-45); HEMOGLOBIN 13.6 g/dL (11.5-14.8); LYMPHOCYTES # (AUTO) 1.4 K/uL (0.8-4.8); LYMPHOCYTES % (AUTO) 16.9 % (20.0-44.0); MEAN CORPUSCULAR HEMOGLOBIN 30 PG (26.0-33.0); MEAN CORPUSCULAR HGB CONC 33 g/dl (31.0-36.0); MEAN CORPUSCULAR VOLUME 92 fL (82-100); MONOCYTES # (AUTO) 0.6 K/uL (0.1-1.30); MONOCYTES % (AUTO) 7.5 % (2.0-12.0); NEUTROPHILS # (AUTO) 5.9 K/uL (1.8-8.9); NEUTROPHILS % (AUTO) 72.4 % (43.0-81.0); PLATELET COUNT (AUTO) 228 K/uL (150-450); RED BLOOD CELL COUNT(AUTO) 4.49 MIL/uL (4.0-5.2); RED CELL DISTRIBUTION WIDTH 16.3 % (11.5-15.0); WHITE BLOOD COUNT (AUTO) 8.2 K/uL (4.3-11.0)
[2023-09-22 09:14] LABS: ALANINE AMINOTRANSFERASE 15 U/L (12-78); ALKALINE PHOSPHATASE 75 U/L (46-116); ASPARTATE AMINOTRANSFERASE 16 U/L (15-37); BILIRUBIN,DIRECT 0.1 mg/dL (0.0-0.2); BILIRUBIN,TOTAL 0.5 mg/dL (0.2-1.0); CALCIUM, SERUM 9.7 mg/dL (8.5-10.1); CARBON DIOXIDE 33 mmol/L (21-32); CHLORIDE 106 mmol/L (98-107); CREATININE 0.9 mg/dL (0.6-1.3); GLUCOSE 136 mg/dL (74-106); LIPASE 15 U/L (16-77); POTASSIUM 3.6 mmol/L (3.5-5.1); SODIUM SERUM 145 mmol/L (136-145); TOTAL PROTEIN, SERUM 6.8 g/dL (6.4-8.2); UREA NITROGEN, BLOOD 26 mg/dL (7-18)
[2023-09-22 09:16] LABS: LACTIC ACID 1.7 mmol/L (0.4-2.0)
[2023-09-22 10:42] VITALS: O2SAT 97
[2023-09-22 10:48] LABS: APPEARANCE,URINE CLEAR (CLEAR); BILIRUBIN,URINE NEGATIVE (NEGATIVE); BLOOD, URINE NEGATIVE Ery/uL (NEGATIVE); COLOR,URINE YELLOW (YELLOW); KETONES,URINE NEGATIVE (NEGATIVE); LEUKOCYTE ESTERASE ,URINE NEGATIVE (NEGATIVE); NITRITE, URINE NEGATIVE (NEGATIVE); PH,URINE 7.5 (5.0-8.0); PROTEIN,URINE TRACE mg/dl (NEGATIVE); UGLUCOSE NEGATIVE (NEGATIVE)
[2023-09-22 10:59] LABS: ADD URINE CULTURE YES; BACTERIA,URINE Moderate /HPF (None Seen); RBC,URINE NONE SEEN /HPF (0-2); WBC,URINE 0-2 /HPF (0-3)
[2023-09-22 11:00] LABS: SQUAMOUS EPITHELIAL CELL,UR Few /HPF (None Seen)
[2023-09-22] MEDS ORDERED: Z GUARD REMEDY 4 OZ OINT TP PRN (11:30)
[2023-09-22] MEDS ORDERED: ONDANSETRON HCL/PF 4 MG/2 ML VIAL IVP PRN (11:30)
[2023-09-22] MEDS: PANTOPRAZOLE 40 MG TABLET.DR PO SCH (11:52)
[2023-09-22] MEDS ORDERED: DEXTROSE 50%-WATER 50 ML DISP.SYRIN IV PRN (12:00)
[2023-09-22] MEDS: BLOOD SUGAR DIAGNOSTIC 1 EACH STRIP IN SCH (12:03)
[2023-09-22] MEDS: HYDROCODONE/APAP 5/325MG TABLET PO PRN (13:55)
[2023-09-22] MEDS ORDERED: CLON0.5T4 PO (15:06)
[2023-09-22] MEDS ORDERED: METF-440 PO (15:06)
[2023-09-22 16:02] VITALS: BP 142/69; TEMP 97.7; O2SAT 93
[2023-09-22] MEDS: RIVAROXABAN 10 MG TABLET PO SCH (17:16)
[2023-09-22] MEDS: GABAPENTIN 300 MG CAPSULE PO SCH (17:17)
[2023-09-22] MEDS: INSULIN REGULAR, HUMAN 100 UNIT/ML 3 ML VIAL SQ PRN (17:31)
[2023-09-22] MEDS: ACETAMINOPHEN 325 MG TABLET PO PRN (17:31)
[2023-09-22] MEDS: IV NS 0.9% 1,000 ML IV PRN (18:18)
[2023-09-22 20:00] VITALS: BP_SYST 113; BP_DIAS 32; BP_DIAS 62; TEMP 98.2; O2SAT 94
[2023-09-22] MEDS: AMLODIPINE BESYLATE 5 MG TABLET PO SCH (21:50)
[2023-09-22] MEDS: clonazePAM 0.5 MG TABLET PO SCH (21:51)
[2023-09-23 06:52] LABS: BASOPHILS % (AUTO) 0.7 % (0.0-2.0); EOSINOPHILS # (AUTO) 0.1 K/uL (0.0-0.7); EOSINOPHILS % (AUTO) 1.9 % (0.0-6.0); HEMATOCRIT 37 % (33-45); HEMOGLOBIN 12.3 g/dL (11.5-14.8); LYMPHOCYTES # (AUTO) 1.5 K/uL (0.8-4.8); LYMPHOCYTES % (AUTO) 20.7 % (20.0-44.0); MEAN CORPUSCULAR HEMOGLOBIN 31 PG (26.0-33.0); MEAN CORPUSCULAR HGB CONC 33 g/dl (31.0-36.0); MEAN CORPUSCULAR VOLUME 92 fL (82-100); MONOCYTES # (AUTO) 0.5 K/uL (0.1-1.30); MONOCYTES % (AUTO) 7.4 % (2.0-12.0); NEUTROPHILS # (AUTO) 5.1 K/uL (1.8-8.9); NEUTROPHILS % (AUTO) 69.3 % (43.0-81.0); PLATELET COUNT (AUTO) 195 K/uL (150-450); RED BLOOD CELL COUNT(AUTO) 4.02 MIL/uL (4.0-5.2); RED CELL DISTRIBUTION WIDTH 16.2 % (11.5-15.0); WHITE BLOOD COUNT (AUTO) 7.4 K/uL (4.3-11.0)
[2023-09-23 07:19] LABS: CALCIUM, SERUM 8.9 mg/dL (8.5-10.1); CARBON DIOXIDE 25 mmol/L (21-32); CHLORIDE 107 mmol/L (98-107); CREATININE 0.8 mg/dL (0.6-1.3); GLUCOSE 256 mg/dL (74-106); PHOSPHORUS 2.6 mg/dL (2.5-4.9); POTASSIUM 3.6 mmol/L (3.5-5.1); SODIUM SERUM 143 mmol/L (136-145); UREA NITROGEN, BLOOD 22 mg/dL (7-18)
[2023-09-23] MEDS ORDERED: PANTOPRAZOLE 40 MG TABLET.DR PO SCH (07:30)
[2023-09-23 07:41] LABS: CHOLESTEROL 142 mg/dL (<200); HDL CHOLESTEROL 46 mg/dL (40-60); LDL 69 mg/dL (0-99); TRIGLYCERIDES 157 mg/dL (30-150)
[2023-09-23] MEDS: VALSARTAN 80 MG TABLET PO SCH (09:01)
[2023-09-23] MEDS: METOPROLOL SUCCINATE 50 MG TAB.SR.24H PO SCH (09:01)
[2023-09-23] MEDS: ESCITALOPRAM OXALATE (10 MG) 10 MG TABLET PO SCH (09:02)
[2023-09-23] MEDS: INSULIN GLARGINE, 100 UNIT/ML CARTRIDGE SQ SCH (09:07)
[2023-09-23 16:00] VITALS: BP 126/72; TEMP 98.1; O2SAT 93
[2023-09-23 20:25] VITALS: BP 112/69; TEMP 97.9; O2SAT 97
[2023-09-24] MEDS: KETOROLAC TROMETHAMINE 15 MG/ML VIAL IV PRN (06:45)
[2023-09-24 06:59] LABS: BASOPHILS # (AUTO) 0.1 K/uL (0.0-0.2); BASOPHILS % (AUTO) 0.7 % (0.0-2.0); EOSINOPHILS # (AUTO) 0.1 K/uL (0.0-0.7); EOSINOPHILS % (AUTO) 1.7 % (0.0-6.0); HEMATOCRIT 35 % (33-45); HEMOGLOBIN 11.5 g/dL (11.5-14.8); LYMPHOCYTES # (AUTO) 1.1 K/uL (0.8-4.8); LYMPHOCYTES % (AUTO) 13.5 % (20.0-44.0); MEAN CORPUSCULAR HEMOGLOBIN 31 PG (26.0-33.0); MEAN CORPUSCULAR HGB CONC 33 g/dl (31.0-36.0); MEAN CORPUSCULAR VOLUME 94 fL (82-100); MONOCYTES # (AUTO) 0.5 K/uL (0.1-1.30); MONOCYTES % (AUTO) 6.7 % (2.0-12.0); NEUTROPHILS # (AUTO) 6.3 K/uL (1.8-8.9); NEUTROPHILS % (AUTO) 77.4 % (43.0-81.0); PLATELET COUNT (AUTO) 144 K/uL (150-450); RED BLOOD CELL COUNT(AUTO) 3.74 MIL/uL (4.0-5.2); RED CELL DISTRIBUTION WIDTH 16.2 % (11.5-15.0); WHITE BLOOD COUNT (AUTO) 8.1 K/uL (4.3-11.0)
[2023-09-24 07:17] LABS: CALCIUM, SERUM 8.6 mg/dL (8.5-10.1); CARBON DIOXIDE 28 mmol/L (21-32); CHLORIDE 110 mmol/L (98-107); CREATININE 0.6 mg/dL (0.6-1.3); GLUCOSE 204 mg/dL (74-106); PHOSPHORUS 1.9 mg/dL (2.5-4.9); POTASSIUM 3.6 mmol/L (3.5-5.1); SODIUM SERUM 143 mmol/L (136-145); UREA NITROGEN, BLOOD 16 mg/dL (7-18)
[2023-09-24 08:00] VITALS: BP 131/69; TEMP 98.1; O2SAT 95
[2023-09-24] MEDS: MAG HYDROX/AL HYDROX/SIMETH 30 ML UDC PO PRN (14:36)
[2023-09-24] MEDS: DOCUSATE SODIUM 100 MG CAPSULE PO SCH (14:37)
[2023-09-24] MEDS: K PHOS NEUTRAL 250 MG TABLET PO ONE (15:49)
[2023-09-24 16:00] VITALS: BP 152/75; TEMP 98.5; O2SAT 96
[2023-09-24 20:00] VITALS: BP 131/73; TEMP 97.7; O2SAT 97
[2023-09-25] MEDS: MAGNESIUM HYDROXIDE 30 ML UDC PO PRN (05:52)
[2023-09-25 06:52] LABS: BASOPHILS # (AUTO) 0.1 K/uL (0.0-0.2); BASOPHILS % (AUTO) 0.9 % (0.0-2.0); EOSINOPHILS # (AUTO) 0.2 K/uL (0.0-0.7); EOSINOPHILS % (AUTO) 2.4 % (0.0-6.0); HEMATOCRIT 38 % (33-45); HEMOGLOBIN 12.6 g/dL (11.5-14.8); LYMPHOCYTES # (AUTO) 1.7 K/uL (0.8-4.8); LYMPHOCYTES % (AUTO) 23.4 % (20.0-44.0); MEAN CORPUSCULAR HEMOGLOBIN 31 PG (26.0-33.0); MEAN CORPUSCULAR HGB CONC 33 g/dl (31.0-36.0); MEAN CORPUSCULAR VOLUME 92 fL (82-100); MONOCYTES # (AUTO) 0.5 K/uL (0.1-1.30); MONOCYTES % (AUTO) 6.6 % (2.0-12.0); NEUTROPHILS # (AUTO) 4.8 K/uL (1.8-8.9); NEUTROPHILS % (AUTO) 66.7 % (43.0-81.0); PLATELET COUNT (AUTO) 198 K/uL (150-450); RED BLOOD CELL COUNT(AUTO) 4.12 MIL/uL (4.0-5.2); RED CELL DISTRIBUTION WIDTH 15.9 % (11.5-15.0); WHITE BLOOD COUNT (AUTO) 7.2 K/uL (4.3-11.0)
[2023-09-25 07:16] LABS: CALCIUM, SERUM 9.2 mg/dL (8.5-10.1); CARBON DIOXIDE 28 mmol/L (21-32); CHLORIDE 107 mmol/L (98-107); CREATININE 0.7 mg/dL (0.6-1.3); GLUCOSE 162 mg/dL (74-106); PHOSPHORUS 2.2 mg/dL (2.5-4.9); POTASSIUM 3.4 mmol/L (3.5-5.1); SODIUM SERUM 142 mmol/L (136-145); UREA NITROGEN, BLOOD 13 mg/dL (7-18)
[2023-09-25 08:00] VITALS: BP 158/83; TEMP 97.9; O2SAT 95
[2023-09-25] MEDS: POTASSIUM CHLORIDE 20 MEQ POWDER PACKET NG SCH (11:05)
[2023-09-25] MEDS: K PHOS NEUTRAL 250 MG TABLET PO ONE (15:41)
[2023-09-25 16:00] VITALS: BP 156/89; TEMP 98.5; O2SAT 97
[2023-09-25] MEDS: hydrALAZINE HCL 25 MG TABLET PO PRN (17:43)
[2023-09-25 20:22] VITALS: BP 145/81; TEMP 97.2; O2SAT 95
[2023-09-26 06:59] LABS: BASOPHILS # (AUTO) 0.1 K/uL (0.0-0.2); BASOPHILS % (AUTO) 0.9 % (0.0-2.0); EOSINOPHILS # (AUTO) 0.1 K/uL (0.0-0.7); EOSINOPHILS % (AUTO) 2.4 % (0.0-6.0); HEMATOCRIT 36 % (33-45); HEMOGLOBIN 11.9 g/dL (11.5-14.8); LYMPHOCYTES # (AUTO) 1.4 K/uL (0.8-4.8); LYMPHOCYTES % (AUTO) 22.1 % (20.0-44.0); MEAN CORPUSCULAR HEMOGLOBIN 31 PG (26.0-33.0); MEAN CORPUSCULAR HGB CONC 34 g/dl (31.0-36.0); MEAN CORPUSCULAR VOLUME 92 fL (82-100); MONOCYTES # (AUTO) 0.6 K/uL (0.1-1.30); NEUTROPHILS % (AUTO) 65.6 % (43.0-81.0); PLATELET COUNT (AUTO) 180 K/uL (150-450); RED BLOOD CELL COUNT(AUTO) 3.87 MIL/uL (4.0-5.2); WHITE BLOOD COUNT (AUTO) 6.2 K/uL (4.3-11.0)
[2023-09-26 07:38] LABS: CALCIUM, SERUM 9.4 mg/dL (8.5-10.1); CARBON DIOXIDE 26 mmol/L (21-32); CHLORIDE 109 mmol/L (98-107); CREATININE 0.6 mg/dL (0.6-1.3); GLUCOSE 107 mg/dL (74-106); MAGNESIUM 2.6 mg/dL (1.8-2.4); PHOSPHORUS 2.8 mg/dL (2.5-4.9); POTASSIUM 3.7 mmol/L (3.5-5.1); SODIUM SERUM 145 mmol/L (136-145); UREA NITROGEN, BLOOD 15 mg/dL (7-18)
[2023-09-26 08:00] VITALS: BP 144/82; TEMP 98.4; O2SAT 96
[2023-09-26 09:08] VITALS: BP 144/82
[2023-09-26] MEDS: POLYETHYLENE GLYCOL 3350 17 GM POWD.PACK PO PRN (11:50)
== END 2023-09-26 14:00 | DRG 392 ==
LOC: ER 08:27 → TELE 10:45 → MED 11:22
PROVIDERS: ADMIT Nurse Practitioner Acute Care; ATTEND Student in an Organized Health Care Education/Training Program
DX: K21.9 Gastro-esophageal reflux disease without esophagitis (principal); E11.40 Type 2 diabetes mellitus with diabetic neuropathy, unspecified; I25.10 Atherosclerotic heart disease of native coronary artery without angina pectoris; N28.1 Cyst of kidney, acquired; D18.03 Hemangioma of intra-abdominal structures; E03.9 Hypothyroidism, unspecified; E66.9 Obesity, unspecified; F32.A Depression, unspecified; Z79.4 Long term (current) use of insulin; I10 Essential (primary) hypertension; Z86.711 Personal history of pulmonary embolism; Z95.2 Presence of prosthetic heart valve; R53.1 Weakness; D35.02 Benign neoplasm of left adrenal gland; N20.0 Calculus of kidney; E86.0 Dehydration; Z68.28 Body mass index [BMI] 28.0-28.9, adult
CPT/HCPCS: 36415; 71045-TC; 80048-TC; 80061-TC; 80076-TC; 81001; 82962-TC; 83605-TC; 83690-TC; 83735-TC; 84100-TC; 84443-TC; 85025-TC; 87040-TC; 87086-TC; 97110-TC; 97116-TC; 97530-TC; 97535-TC; A4223; G0378; J1815; J1885; J2270; J2405; J7030; J7040; J7050; Q9967

== ENCOUNTER 2023-11-07 11:20 | Emergency (ER) | payer MEDICARE, OTHER ==
[~2023-11-07] VITALS: Ht 152.4 cm; Wt 70.3 kg
[~2023-11-07 11:20] MED LIST changes: -*INS REG SQ; -Aspirin Ec PO; -BUME1TAB8 PO; -CEFT1FRO2 IV; +CLON0.5T4 PO; -CLON1TAB12 PO; -DOXE10OR2 PO; -ESOM40CA52 PO; -INSU100I14 SQ; -INSU100V28 SQ; +METF-440 PO; -METO25TA4 PO; -SEMA1PEN SQ; -SUMA25TA PO; -VALS80TA2 PO; -[UNRECOGNIZED DRUG - OTHER] EACHEYE
[2023-11-07 13:00] LABS: CALCIUM, SERUM 8.6 mg/dL (8.5-10.1); CARBON DIOXIDE 32 mmol/L (21-32); CHLORIDE 106 mmol/L (98-107); CREATININE 0.7 mg/dL (0.6-1.3); GLUCOSE 138 mg/dL (74-106); POTASSIUM 3.9 mmol/L (3.5-5.1); SODIUM SERUM 141 mmol/L (136-145); UREA NITROGEN, BLOOD 18 mg/dL (7-18)
[2023-11-07 13:12] LABS: ALANINE AMINOTRANSFERASE 28 U/L (12-78); ALBUMIN 2.6 g/dL (3.4-5.0); ALKALINE PHOSPHATASE 77 U/L (46-116); ASPARTATE AMINOTRANSFERASE 18 U/L (15-37); BILIRUBIN,DIRECT 0.1 mg/dL (0.0-0.2); BILIRUBIN,TOTAL 0.2 mg/dL (0.2-1.0); NT-PRO BNP 559 pg/mL (0-125); TOTAL PROTEIN, SERUM 5.9 g/dL (6.4-8.2)
[2023-11-07 13:16] LABS: INR 0.97 (0.91-1.10); PARTIAL THROMBOPLASTIN TIME 22.8 SEC (24.3-34.3); PROTHROMBIN TIME 10.3 SECS (9.2-11.1)
[2023-11-07 13:31] LABS: BASOPHILS # (AUTO) 0.1 K/uL (0.0-0.2); BASOPHILS % (AUTO) 0.7 % (0.0-2.0); EOSINOPHILS # (AUTO) 0.2 K/uL (0.0-0.7); EOSINOPHILS % (AUTO) 2.2 % (0.0-6.0); HEMATOCRIT 31 % (33-45); HEMOGLOBIN 10.5 g/dL (11.5-14.8); LYMPHOCYTES # (AUTO) 1.3 K/uL (0.8-4.8); LYMPHOCYTES % (AUTO) 16.8 % (20.0-44.0); MEAN CORPUSCULAR HEMOGLOBIN 31 PG (26.0-33.0); MEAN CORPUSCULAR HGB CONC 34 g/dl (31.0-36.0); MEAN CORPUSCULAR VOLUME 93 fL (82-100); MONOCYTES # (AUTO) 0.6 K/uL (0.1-1.30); MONOCYTES % (AUTO) 7.7 % (2.0-12.0); NEUTROPHILS # (AUTO) 5.5 K/uL (1.8-8.9); NEUTROPHILS % (AUTO) 72.6 % (43.0-81.0); PLATELET COUNT (AUTO) 206 K/uL (150-450); RED BLOOD CELL COUNT(AUTO) 3.33 MIL/uL (4.0-5.2); RED CELL DISTRIBUTION WIDTH 15.8 % (11.5-15.0); WHITE BLOOD COUNT (AUTO) 7.5 K/uL (4.3-11.0)
[2023-11-07] MEDS ORDERED: CT SWABBABLE VALVE TRANS SET 1 EA INFUS.SET MC ONE (14:20)
[2023-11-07] MEDS: ACETAMINOPHEN ES 500 MG TABLET PO ONE (14:20)
[2023-11-07] MEDS ORDERED: IOHEXOL-350 100 ML VIAL IV ONE (14:20)
[2023-11-07] MEDS ORDERED: IV NS 0.9% 250 ML IV ONE (14:21)
[2023-11-07] MEDS ORDERED: ACETAMINOPHEN ES 500 MG TABLET ONE (16:12)
[2023-11-07 21:29] VITALS: BP 130/72; TEMP 98.8; O2SAT 96
== END 2023-11-07 21:30 | disposition left against medical advice (07) ==
LOC: ER 11:31
DX: S80.11XA Contusion of right lower leg, initial encounter (principal); M79.89 Other specified soft tissue disorders; R06.02 Shortness of breath; R00.1 Bradycardia, unspecified; E03.9 Hypothyroidism, unspecified; F32.A Depression, unspecified; F41.9 Anxiety disorder, unspecified; E11.9 Type 2 diabetes mellitus without complications; K21.9 Gastro-esophageal reflux disease without esophagitis; I11.0 Hypertensive heart disease with heart failure; I50.9 Heart failure, unspecified; Z79.01 Long term (current) use of anticoagulants; Z79.84 Long term (current) use of oral hypoglycemic drugs; Z79.899 Other long term (current) drug therapy; Z86.711 Personal history of pulmonary embolism; Z95.2 Presence of prosthetic heart valve; Z95.5 Presence of coronary angioplasty implant and graft; Z60.2 Problems related to living alone; W20.8XXA Other cause of strike by thrown, projected or falling object, initial encounter; Y93.89 Activity, other specified; Y92.098 Other place in other non-institutional residence as the place of occurrence of the external cause; Y99.8 Other external cause status
CPT/HCPCS: 99285; 75635; 71045; 93005; 73590; 85025; 80048; 80076; 36415; 84484 ×2; 85730; 83880; 82962; J7050; Q9967

== ENCOUNTER 2024-10-27 15:02 | Inpatient (IN) | payer MEDICARE, OTHER ==
[~2024-10-27] VITALS: Ht 157.5 cm; Wt 56.7 kg
[2024-10-27] MEDS: IV NS 0.9% 500 ML BAG IV ONE (15:28)
[2024-10-27 15:57] LABS: RED BLOOD CELL COUNT(AUTO) 2.92 MIL/uL (4.0-5.2); RED CELL DISTRIBUTION WIDTH 17.0 % (11.5-15.0); WHITE BLOOD COUNT (AUTO) 6.5 K/uL (4.3-11.0)
[2024-10-27 16:05] LABS: CALCIUM, SERUM 8.4 mg/dL (8.5-10.1); CREATININE 0.9 mg/dL (0.6-1.3); SODIUM SERUM 140 mmol/L (136-145); UREA NITROGEN, BLOOD 25 mg/dL (7-18)
[2024-10-27 16:11] LABS: PLATELET COUNT (AUTO) 138 K/uL (150-450)
[2024-10-27 16:13] LABS: ASPARTATE AMINOTRANSFERASE 9 U/L (15-37); TOTAL PROTEIN, SERUM 5.1 g/dL (6.4-8.2)
[2024-10-27 16:15] LABS: INR 1.19 (0.91-1.10)
[2024-10-27 16:17] LABS: LACTIC ACID 1.6 mmol/L (0.4-2.0)
[2024-10-27 17:10] LABS: APPEARANCE,URINE TURBID (CLEAR); BLOOD, URINE 2+ Ery/uL (NEGATIVE); LEUKOCYTE ESTERASE ,URINE 2+ (NEGATIVE); NITRITE, URINE NEGATIVE (NEGATIVE); UGLUCOSE NEGATIVE (NEGATIVE)
[2024-10-27] MEDS ORDERED: ACETAMINOPHEN 650 MG/SUPP.RECT RC ONE (17:18)
[2024-10-27 17:21] LABS: ADD URINE CULTURE YES; SQUAMOUS EPITHELIAL CELL,UR 0-2 /HPF (None Seen)
[2024-10-27] MEDS: VANCOMYCIN 1 GM in IV D5W 250 ML IV ONE (17:30)
[2024-10-27] MEDS: ACETAMINOPHEN 650 MG/SUPP.RECT RC ONE (17:31)
[2024-10-27] MEDS: PIPERACILLIN /TAZOBACTAM 3.375 G in IV D5W 50 ML IV ONE (17:32)
[2024-10-27] MEDS ORDERED: APIX2.5T PO (17:55)
[2024-10-27] MEDS ORDERED: ATOR40TA PO (17:55)
[2024-10-27] MEDS ORDERED: OXYC5TAB3 PO (17:55)
[2024-10-27] MEDS ORDERED: DONE5TAB34 PO (17:55)
[2024-10-27] MEDS ORDERED: DIVA125C5 PO (17:55)
[2024-10-27] MEDS ORDERED: QUET25TA PO (17:55)
[2024-10-27] MEDS ORDERED: INSU100C10 SQ (17:55)
[2024-10-27] MEDS ORDERED: PANT40TA49 PO (17:55)
[2024-10-27] MEDS ORDERED: LEVO25TA9 PO (17:55)
[2024-10-27] MEDS ORDERED: METO100T14 PO (17:55)
[2024-10-27 21:00] VITALS: BP 97/52; TEMP 97.5; O2SAT 95
[2024-10-27 21:22] LABS: OCCULT BLOOD STOOL NEGATIVE (NEGATIVE)
[2024-10-27] MEDS ORDERED: HYDROCODONE/APAP 5/325MG TABLET PO PRN (21:30)
[2024-10-27] MEDS ORDERED: DEXTROSE 50%-WATER 50 ML DISP.SYRIN IV PRN (21:30)
[2024-10-27] MEDS ORDERED: DOSING PER PHARMACY-VANCOMYCIN IV XX PRN (21:30)
[2024-10-27] MEDS ORDERED: ONDANSETRON HCL/PF 4 MG/2 ML VIAL IVP PRN (21:30)
[2024-10-27] MEDS ORDERED: Z GUARD REMEDY 4 OZ OINT TP PRN (21:30)
[2024-10-27] MEDS ORDERED: ASPIRIN 81 MG TAB.CHEW ONE (23:42)
[2024-10-27] MEDS: ASPIRIN 81 MG TAB.CHEW PO ONE (23:45)
[2024-10-27] MEDS: IV NS 0.9% 500 ML IV ONE (23:45)
[2024-10-27] MEDS: BLOOD SUGAR DIAGNOSTIC 1 EACH STRIP IN SCH (23:46)
[2024-10-28] VITALS: BP 95/51; TEMP 97.4; O2SAT 90
[2024-10-28] MEDS: INSULIN GLARGINE, 100 UNIT/ML CARTRIDGE SQ SCH (00:34)
[2024-10-28] MEDS: INSULIN REGULAR, HUMAN 100 UNIT/ML 3 ML VIAL SQ PRN (00:36)
[2024-10-28] MEDS: IV NS 0.9% 1,000 ML IV PRN (00:41)
[2024-10-28] MEDS ORDERED: CEFEPIME 1 GM VIAL ONE (01:13)
[2024-10-28] MEDS: CEFEPIME 2 GM in IV D5W 100 ML IV ONE (01:27)
[2024-10-28 04:00] VITALS: BP 109/57; TEMP 98.1; O2SAT 96
[2024-10-28] MEDS: LEVOTHYROXINE SODIUM 25 MCG TABLET PO SCH (06:44)
[2024-10-28 08:00] VITALS: BP 136/70; TEMP 99.7; O2SAT 95
[2024-10-28] MEDS: ATORVASTATIN 40 MG TABLET PO SCH (08:19)
[2024-10-28] MEDS: DONEPEZIL 5 MG TABLET PO SCH (08:19)
[2024-10-28] MEDS: PANTOPRAZOLE 40 MG TABLET.DR PO SCH (08:19)
[2024-10-28] MEDS: DIVALPROEX SODIUM 125 MG CAP.SPRINK PO SCH (08:19)
[2024-10-28] MEDS: ASPIRIN 81 MG TAB.CHEW PO SCH (08:19)
[2024-10-28] MEDS: QUETIAPINE FUMARATE 25 MG TABLET PO SCH (08:20)
[2024-10-28] MEDS: ESCITALOPRAM OXALATE (10 MG) 10 MG TABLET PO SCH (08:20)
[2024-10-28] MEDS: APIXABAN 2.5 MG TABLET PO SCH (08:22)
[2024-10-28] MEDS: CEFEPIME 2 GM in IV D5W 100 ML IV SCH (08:24)
[2024-10-28] MEDS: MAG HYDROX/AL HYDROX/SIMETH 30 ML UDC PO PRN (10:52)
[2024-10-28] MEDS: METOPROLOL TARTRATE INJ 5 MG/5 ML AMPUL IVP ONE (11:32)
[2024-10-28 12:00] VITALS: BP 98/57; TEMP 98.2; O2SAT 96
[2024-10-28] MEDS: MAGNESIUM HYDROXIDE 30 ML UDC PO PRN (15:37)
[2024-10-28 16:00] VITALS: BP 130/74; TEMP 98.2; O2SAT 98
[2024-10-28 18:56] LABS: PLATELET COUNT (AUTO) 105 K/uL (150-450); RED BLOOD CELL COUNT(AUTO) 2.65 MIL/uL (4.0-5.2); RED CELL DISTRIBUTION WIDTH 17.0 % (11.5-15.0); WHITE BLOOD COUNT (AUTO) 5.0 K/uL (4.3-11.0)
[2024-10-28 19:54] LABS: IRON, SERUM 9.0 ug/dl (50-175)
[2024-10-28 19:55] LABS: CALCIUM, SERUM 8.3 mg/dL (8.5-10.1); CREATININE 0.8 mg/dL (0.6-1.3); PHOSPHORUS 2.3 mg/dL (2.5-4.9); SODIUM SERUM 145.0 mmol/L (136-145); UREA NITROGEN, BLOOD 23.0 mg/dL (7-18)
[2024-10-28] MEDS: METOPROLOL TARTRATE 50 MG TABLET PO SCH (21:09)
[2024-10-28 22:53] VITALS: BP 109/54; TEMP 98.1; O2SAT 100
[2024-10-29] VITALS: BP 120/70; TEMP 98.2; O2SAT 98
[2024-10-29 04:00] VITALS: BP 115/67; TEMP 97.9; O2SAT 100
[2024-10-29 07:01] LABS: PLATELET COUNT (AUTO) 108 K/uL (150-450); RED BLOOD CELL COUNT(AUTO) 2.67 MIL/uL (4.0-5.2); RED CELL DISTRIBUTION WIDTH 17.8 % (11.5-15.0); WHITE BLOOD COUNT (AUTO) 4.3 K/uL (4.3-11.0)
[2024-10-29 07:06] LABS: CALCIUM, SERUM 8.2 mg/dL (8.5-10.1); CREATININE 0.7 mg/dL (0.6-1.3); SODIUM SERUM 143.0 mmol/L (136-145); UREA NITROGEN, BLOOD 19.0 mg/dL (7-18)
[2024-10-29 08:00] VITALS: BP 122/67; TEMP 98.1; O2SAT 97
[2024-10-29 10:32] LABS: BASOPHILS % (MANUAL) 0 % (0.0-2.0); EOSINOPHILS % (MANUAL) 3 % (0-4); LYMPHOCYTES % (MANUAL) 11 % (16-48); MONOCYTES % (MANUAL) 15 % (0-11.0); NEUTROPHILS % (MANUAL) 71 (42-76); PLATELET ESTIMATE DECREASED
[2024-10-29] MEDS: VANCOMYCIN 750 MG in IV D5W 250 ML IV SCH (11:16)
[2024-10-29 11:30] VITALS: BP 117/74; TEMP 98.2; O2SAT 98
[2024-10-29 16:00] VITALS: BP 114/66; TEMP 97.9; O2SAT 93
[2024-10-29 20:00] VITALS: BP 142/73; TEMP 98.2; O2SAT 94
[2024-10-30 06:53] LABS: PLATELET COUNT (AUTO) 113 K/uL (150-450); RED BLOOD CELL COUNT(AUTO) 2.55 MIL/uL (4.0-5.2); RED CELL DISTRIBUTION WIDTH 16.7 % (11.5-15.0); WHITE BLOOD COUNT (AUTO) 4.0 K/uL (4.3-11.0)
[2024-10-30 07:08] LABS: CALCIUM, SERUM 8.2 mg/dL (8.5-10.1); CREATININE 0.6 mg/dL (0.6-1.3); SODIUM SERUM 141.0 mmol/L (136-145); UREA NITROGEN, BLOOD 11.0 mg/dL (7-18)
[2024-10-30 09:06] VITALS: BP 157/103; TEMP 97.5; O2SAT 96
[2024-10-30] MEDS: SOD FERRIC GLUC 125 MG in IV NS 0.9% 100 ML IV SCH (16:19)
[2024-10-30 16:30] VITALS: BP 155/76
[2024-10-30 16:55] VITALS: BP 161/78; TEMP 97.9; O2SAT 95
[2024-10-30] MEDS: GLUCERNA SHAKE 237 ML CAN PO SCH (17:12)
[2024-10-30] MEDS: MEGESTROL ACETATE SUSP 400 MG/10 ML UDC PO SCH (17:12)
[2024-10-30 20:00] VITALS: BP_SYST 115; BP_SYST 138; BP_DIAS 68; BP_DIAS 71; TEMP 98.1; O2SAT 94; O2SAT 98
[2024-10-30] MEDS ORDERED: POTASSIUM CHLORIDE 20 MEQ POWDER PACKET GT ONE (20:00)
[2024-10-30] MEDS: POTASSIUM CHLORIDE 20 MEQ TAB.PRT.SR PO ONE (20:00)
[2024-10-30] MEDS: POTASSIUM CHLORIDE 20 MEQ POWDER PACKET PO ONE (21:00)
[2024-10-31 00:30] VITALS: BP 154/77; TEMP 98.1; O2SAT 98
[2024-10-31] MEDS: POTASSIUM CL. PREMIX PERIPHER. 50 ML IV SCH (01:30)
[2024-10-31] MEDS ORDERED: hydrALAZINE HCL IV 20 MG VIAL IV PRN (01:30)
[2024-10-31 08:25] VITALS: BP 126/88; TEMP 97.4; O2SAT 97
[2024-10-31 12:16] LABS: CALCIUM, SERUM 8.8 mg/dL (8.5-10.1); CREATININE 0.6 mg/dL (0.6-1.3); SODIUM SERUM 143.0 mmol/L (136-145); UREA NITROGEN, BLOOD 7.0 mg/dL (7-18)
[2024-10-31 12:25] LABS: PLATELET COUNT (AUTO) 176 K/uL (150-450); RED BLOOD CELL COUNT(AUTO) 2.99 MIL/uL (4.0-5.2); RED CELL DISTRIBUTION WIDTH 17.4 % (11.5-15.0); WHITE BLOOD COUNT (AUTO) 4.2 K/uL (4.3-11.0)
[2024-10-31] MEDS ORDERED: DONE5TAB34 PO (12:40)
[2024-10-31] MEDS ORDERED: DIVA125C2 PO (12:40)
[2024-10-31] MEDS ORDERED: ESCI10TA PO (12:40)
[2024-10-31] MEDS ORDERED: INSU100V28 SQ (12:40)
[2024-10-31] MEDS ORDERED: CEFE2FRO IV (12:40)
[2024-10-31] MEDS ORDERED: METO50TA16 PO (12:40)
[2024-10-31] MEDS ORDERED: APIX2.5T PO (12:40)
[2024-10-31] MEDS ORDERED: CLON0.5T4 PO (12:40)
[2024-10-31] MEDS ORDERED: ATOR40TA PO (12:40)
[2024-10-31] MEDS ORDERED: ASPI-1169 PO (12:40)
[2024-10-31] MEDS ORDERED: Blood Sugar Diagnostic IN (12:40)
[2024-10-31] MEDS ORDERED: Quetiapine Fumarate PO (12:40)
[2024-10-31] MEDS ORDERED: NUT.237L45 PO (12:40)
[2024-10-31] MEDS ORDERED: INSU100I30 SQ (12:40)
[2024-10-31] MEDS ORDERED: MEGE400O5 PO (12:40)
[2024-10-31 16:18] VITALS: BP 135/80; TEMP 97.4; O2SAT 94
[2024-10-31] MEDS: ACETAMINOPHEN 325 MG TABLET PO PRN (16:28)
[2024-10-31] MEDS ORDERED: QUETIAPINE FUMARATE 25 MG TABLET PO SCH (21:00)
== END 2024-10-31 18:12 | DRG 871 ==
LOC: ER 15:05 → TELE 19:43 → MED 10-30 10:56
PROVIDERS: ADMIT Registered Nurse Psychiatric/Mental Health; ATTEND Nurse Practitioner Acute Care
DX: A41.9 Sepsis, unspecified organism (principal); G93.41 Metabolic encephalopathy; I21.A1 Myocardial infarction type 2; J15.9 Unspecified bacterial pneumonia; N39.0 Urinary tract infection, site not specified; F03.93 Unspecified dementia, unspecified severity, with mood disturbance; F03.94 Unspecified dementia, unspecified severity, with anxiety; D68.59 Other primary thrombophilia; J44.0 Chronic obstructive pulmonary disease with (acute) lower respiratory infection; E44.0 Moderate protein-calorie malnutrition; E03.9 Hypothyroidism, unspecified; E11.65 Type 2 diabetes mellitus with hyperglycemia; E86.0 Dehydration; K21.9 Gastro-esophageal reflux disease without esophagitis; F32.A Depression, unspecified; I10 Essential (primary) hypertension; F41.9 Anxiety disorder, unspecified; I25.10 Atherosclerotic heart disease of native coronary artery without angina pectoris; Z95.5 Presence of coronary angioplasty implant and graft; E11.40 Type 2 diabetes mellitus with diabetic neuropathy, unspecified; Z95.2 Presence of prosthetic heart valve; Z86.711 Personal history of pulmonary embolism; Z86.718 Personal history of other venous thrombosis and embolism; Z87.440 Personal history of urinary (tract) infections; Z79.4 Long term (current) use of insulin; Z79.890 Hormone replacement therapy; Z79.01 Long term (current) use of anticoagulants; Z79.84 Long term (current) use of oral hypoglycemic drugs; Z79.899 Other long term (current) drug therapy; G89.29 Other chronic pain; D63.8 Anemia in other chronic diseases classified elsewhere; Z74.09 Other reduced mobility; E88.09 Other disorders of plasma-protein metabolism, not elsewhere classified
CPT/HCPCS: 36415; 71045-TC; 80048-TC; 80076-TC; 80202-TC; 81001; 82272-TC; 82962-TC; 83540-TC; 83605-TC; 83735-TC; 84100-TC; 84443-TC; 84484-TC; 85025-TC; 85027-TC; 85730-TC; 87040-TC; 87086-TC; 87186-TC; A4223; G0378; J0692; J1815; J2543; J2916; J3373; J3374; J3480; J3490; J7030; J7040; J7050; J7060

== ENCOUNTER 2025-01-04 20:51 | Inpatient (IN) | payer MEDICARE, OTHER ==
[~2025-01-04] VITALS: Ht 157.5 cm; Wt 52.2 kg
[~2025-01-04 20:51] MED LIST changes: +APIX2.5T PO; +ASPI-1169 PO; +ATOR40TA PO; -BUPR1FIL23 SL; +Blood Sugar Diagnostic IN; +CEFE2FRO IV; +DIVA125C2 PO; +DONE5TAB34 PO; -GABA300C PO; +INSU100C10 SQ; +INSU100I30 SQ; +INSU100V28 SQ; -INSU100V7 SQ; +MEGE400O5 PO; +METO50TA16 PO; -METO50TA7 PO; +NUT.237L45 PO; +Quetiapine Fumarate PO; -RIVA10TA PO; -VALS80TA31 PO
[2025-01-04 22:00] LABS: PLATELET COUNT (AUTO) 235 K/uL (150-450); RED BLOOD CELL COUNT(AUTO) 4.18 MIL/uL (4.0-5.2); RED CELL DISTRIBUTION WIDTH 16.5 % (11.5-15.0); WHITE BLOOD COUNT (AUTO) 7.7 K/uL (4.3-11.0)
[2025-01-04 22:08] LABS: CALCIUM, SERUM 9.4 mg/dL (8.5-10.1); CREATININE 0.5 mg/dL (0.6-1.3); SODIUM SERUM 139.0 mmol/L (136-145); UREA NITROGEN, BLOOD 21.0 mg/dL (7-18)
[2025-01-04 22:14] LABS: ASPARTATE AMINOTRANSFERASE 23.0 U/L (15-37); TOTAL PROTEIN, SERUM 6.3 g/dL (6.4-8.2)
[2025-01-04] MEDS ORDERED: METOCLOPRAMIDE HCL 10 MG/2 ML VIAL ONE (22:19)
[2025-01-04] MEDS ORDERED: ACETAMINOPHEN ES 500 MG TABLET ONE (22:19)
[2025-01-04] MEDS: METOCLOPRAMIDE HCL 10 MG/2 ML VIAL IV ONE (22:25)
[2025-01-04] MEDS: ACETAMINOPHEN ES 500 MG TABLET PO ONE (22:25)
[2025-01-04] MEDS ORDERED: IOHEXOL-300 100 ML VIAL IV ONE (22:34)
[2025-01-04] MEDS ORDERED: LORAZEPAM INJ 2 MG/ML VIAL ONE (23:11)
[2025-01-04 23:16] LABS: APPEARANCE,URINE CLOUDY (CLEAR); BLOOD, URINE NEGATIVE Ery/uL (NEGATIVE); LEUKOCYTE ESTERASE ,URINE NEGATIVE (NEGATIVE); NITRITE, URINE POSITIVE (NEGATIVE); UGLUCOSE NEGATIVE (NEGATIVE)
[2025-01-04] MEDS: LORAZEPAM INJ 2 MG/ML VIAL IV ONE (23:17)
[2025-01-04 23:36] LABS: ADD URINE CULTURE YES
[2025-01-04 23:37] LABS: COARSE GRANULAR CASTS,URINE Few /LPF (None Seen)
[2025-01-05] MEDS ORDERED: Z GUARD REMEDY 4 OZ OINT TP PRN
[2025-01-05] MEDS ORDERED: HYDROCODONE/APAP 5/325MG TABLET PO PRN
[2025-01-05] MEDS ORDERED: MAGNESIUM HYDROXIDE 30 ML UDC PO PRN
[2025-01-05] MEDS ORDERED: ONDANSETRON HCL/PF 4 MG/2 ML VIAL IVP PRN
[2025-01-05] MEDS ORDERED: ACETAMINOPHEN 325 MG TABLET PO PRN
[2025-01-05] MEDS ORDERED: PIPERACI/TAZO 3.375GM/D5W 50ML PB IV ONE ×2 (00:22→06:15)
[2025-01-05] MEDS: PIPERACILLIN /TAZOBACTAM 3.375 G in IV D5W 50 ML IV ONE (00:24)
[2025-01-05] MEDS ORDERED: DEXTROSE 50%-WATER 50 ML DISP.SYRIN IV PRN (01:00)
[2025-01-05] MEDS: MORPHINE SULFATE INJ 2 MG/ML DISP.SYRIN IV PRN (02:27)
[2025-01-05 04:00] VITALS: BP 143/79; TEMP 98.1; O2SAT 95
[2025-01-05] MEDS: PIPERACILLIN /TAZOBACTAM 3.375 G in IV D5W 50 ML IV SCH (06:22)
[2025-01-05 07:03] LABS: PLATELET COUNT (AUTO) 274 K/uL (150-450); RED BLOOD CELL COUNT(AUTO) 4.14 MIL/uL (4.0-5.2); RED CELL DISTRIBUTION WIDTH 16.5 % (11.5-15.0); WHITE BLOOD COUNT (AUTO) 7.2 K/uL (4.3-11.0)
[2025-01-05 07:17] LABS: CALCIUM, SERUM 9.4 mg/dL (8.5-10.1); CREATININE 0.7 mg/dL (0.6-1.3); PHOSPHORUS 3.1 mg/dL (2.5-4.9); SODIUM SERUM 141.0 mmol/L (136-145); UREA NITROGEN, BLOOD 20.0 mg/dL (7-18)
[2025-01-05] MEDS: HEPARIN SODIUM, PORCINE 5000 UNITS/1 ML VIAL SQ SCH (08:41)
[2025-01-05] MEDS: PANTOPRAZOLE 40 MG TABLET.DR PO SCH (08:41)
[2025-01-05] MEDS: BLOOD SUGAR DIAGNOSTIC 1 EACH STRIP IN SCH (08:41)
[2025-01-05] MEDS: INSULIN REGULAR, HUMAN 100 UNIT/ML 3 ML VIAL SQ PRN (08:52)
[2025-01-05] MEDS ORDERED: OMEP20CA15 PO (09:17)
[2025-01-05] MEDS ORDERED: APIX2.5T PO (09:17)
[2025-01-05] MEDS ORDERED: POLY17PO4 PO (09:17)
[2025-01-05] MEDS ORDERED: ATOR40TA PO (09:17)
[2025-01-05] MEDS ORDERED: AMIN30LI2 PO (09:17)
[2025-01-05] MEDS ORDERED: QUET25TA PO (09:17)
[2025-01-05] MEDS ORDERED: MAG30ORA PO (09:17)
[2025-01-05] MEDS ORDERED: INSU100I30 SQ (09:17)
[2025-01-05] MEDS ORDERED: METO100T14 PO (09:17)
[2025-01-05] MEDS ORDERED: DIVA125T32 PO (09:17)
[2025-01-05] MEDS ORDERED: MAGN400O6 PO (09:17)
[2025-01-05] MEDS ORDERED: ARGI1POW13 PO (09:17)
[2025-01-05] MEDS ORDERED: BUPR1FIL SL (09:17)
[2025-01-05] MEDS ORDERED: LEVO25TA7 PO (09:17)
[2025-01-05] MEDS ORDERED: ASCO500T20 PO (09:17)
[2025-01-05] MEDS ORDERED: MULT-213 PO (09:17)
[2025-01-05] MEDS ORDERED: DONE5TAB34 PO (09:17)
[2025-01-05] MEDS ORDERED: BISA10SU11 RC (09:17)
[2025-01-05] MEDS ORDERED: TRAZ-182 PO (09:17)
[2025-01-05] MEDS ORDERED: BISACODYL SUPP (10 MG) 10 MG/SUPP.RECT SUPP.RECT RC PRN (12:30)
[2025-01-05] MEDS: LEVOTHYROXINE SODIUM 25 MCG TABLET PO SCH (12:32)
[2025-01-05] MEDS: QUETIAPINE FUMARATE 25 MG TABLET PO SCH (12:32)
[2025-01-05] MEDS: AMLODIPINE BESYLATE 5 MG TABLET PO SCH (12:32)
[2025-01-05] MEDS: KEY,NONCONTROL,TO KEEP IN PYXI 1 EA MC ONE (14:37)
[2025-01-05 16:00] VITALS: BP 166/83; TEMP 98.8; O2SAT 95
[2025-01-05] MEDS: DIVALPROEX SODIUM 125 MG TABLET.DR PO SCH (16:57)
[2025-01-05] MEDS: APIXABAN 2.5 MG TABLET PO SCH (16:58)
[2025-01-05 20:00] VITALS: BP 151/82; TEMP 98.2; O2SAT 98
[2025-01-05] MEDS: METOPROLOL TARTRATE 50 MG TABLET PO SCH (21:01)
[2025-01-05] MEDS: INSULIN GLARGINE, 100 UNIT/ML CARTRIDGE SQ SCH (21:50)
[2025-01-05] MEDS: ATORVASTATIN 40 MG TABLET PO SCH (22:03)
[2025-01-05] MEDS: TRAZODONE 50 MG TABLET PO SCH (22:04)
[2025-01-06] MEDS ORDERED: KEY,NONCONTROL,TO KEEP IN PYXI 1 EA MC ONE ×4 (00:35→19:29)
[2025-01-06 04:00] VITALS: BP 130/86; TEMP 98.2; O2SAT 97
[2025-01-06 08:00] VITALS: BP 127/70; TEMP 97.6; O2SAT 95
[2025-01-06] MEDS: ASCORBIC ACID 500 MG TABLET PO SCH (08:18)
[2025-01-06] MEDS: DONEPEZIL 5 MG TABLET PO SCH (08:19)
[2025-01-06] MEDS: MULTIVITAMINS,THERAGRAN 1 UDTAB TABLET PO SCH (08:19)
[2025-01-06] MEDS: POLYETHYLENE GLYCOL 3350 17 GM POWD.PACK PO SCH (08:23)
[2025-01-06] MEDS: PROSOURCE / PROSTAT (PYXIS) 30 ML UDC PO SCH (08:24)
[2025-01-06 08:28] LABS: PLATELET COUNT (AUTO) 242 K/uL (150-450); RED BLOOD CELL COUNT(AUTO) 3.93 MIL/uL (4.0-5.2); RED CELL DISTRIBUTION WIDTH 16.1 % (11.5-15.0); WHITE BLOOD COUNT (AUTO) 6.9 K/uL (4.3-11.0)
[2025-01-06 09:01] LABS: CALCIUM, SERUM 9.3 mg/dL (8.5-10.1); CREATININE 0.7 mg/dL (0.6-1.3); SODIUM SERUM 143.0 mmol/L (136-145); UREA NITROGEN, BLOOD 11.0 mg/dL (7-18)
[2025-01-06] MEDS: POTASSIUM CHLORIDE 20 MEQ TAB.PRT.SR PO SCH (09:59)
[2025-01-06 16:00] VITALS: BP 127/70; TEMP 97.9; O2SAT 94
[2025-01-07] VITALS: BP 144/80; TEMP 97.7; O2SAT 95
[2025-01-07] MEDS ORDERED: KEY,NONCONTROL,TO KEEP IN PYXI 1 EA MC ONE ×4 (00:38→17:46)
[2025-01-07 08:00] VITALS: BP 136/87; TEMP 97.6; O2SAT 97
[2025-01-07 08:34] VITALS: BP 136/87
[2025-01-07] MEDS ORDERED: ACID1TAB12 PO (09:59)
[2025-01-07] MEDS ORDERED: AMOX-430 PO (09:59)
== END 2025-01-07 18:30 | DRG 391 ==
LOC: ER 20:59 → MEDSG1 01-05 00:06
PROVIDERS: ADMIT Nurse Practitioner Family; ATTEND Nurse Practitioner Acute Care
DX: K57.32 Diverticulitis of large intestine without perforation or abscess without bleeding (principal); G93.41 Metabolic encephalopathy; E44.1 Mild protein-calorie malnutrition; E88.09 Other disorders of plasma-protein metabolism, not elsewhere classified; F29 Unspecified psychosis not due to a substance or known physiological condition; E11.9 Type 2 diabetes mellitus without complications; D64.9 Anemia, unspecified; Z79.01 Long term (current) use of anticoagulants; E03.9 Hypothyroidism, unspecified; F32.A Depression, unspecified; Z95.2 Presence of prosthetic heart valve; I11.9 Hypertensive heart disease without heart failure; K76.9 Liver disease, unspecified; G30.9 Alzheimer's disease, unspecified; Z95.5 Presence of coronary angioplasty implant and graft; I25.10 Atherosclerotic heart disease of native coronary artery without angina pectoris; E78.5 Hyperlipidemia, unspecified; E86.0 Dehydration; G89.4 Chronic pain syndrome; Z79.4 Long term (current) use of insulin; Z86.711 Personal history of pulmonary embolism; Z79.82 Long term (current) use of aspirin; Z79.84 Long term (current) use of oral hypoglycemic drugs; Z86.718 Personal history of other venous thrombosis and embolism; Z68.21 Body mass index [BMI] 21.0-21.9, adult; F02.80 Dementia in other diseases classified elsewhere, unspecified severity, without behavioral disturbance, psychotic disturbance, mood disturbance, and anxiety
CPT/HCPCS: 36415; 80048-TC; 80053-TC; 81001; 82962-TC; 83605-TC; 83690-TC; 83735-TC; 84100-TC; 85025-TC; 87040-TC; 87086-TC; 97110-TC; 97116-TC; 97530-TC; A4223; G0378; J1200; J1644; J1815; J2060; J2270; J2543; J2765; J7050; J7060; Q9967

== ENCOUNTER 2025-01-27 18:07 | Inpatient (IN) | payer MEDICARE, OTHER ==
[~2025-01-27] VITALS: Ht 157.5 cm; Wt 49.9 kg
[~2025-01-27 18:07] MED LIST changes: +ACID1TAB12 PO; +AMIN30LI2 PO; +AMOX-430 PO; +ARGI1POW13 PO; +ASCO500T20 PO; -ASPI-1169 PO; +BISA10SU11 RC; +BUPR1FIL SL; -Blood Sugar Diagnostic IN; -CEFE2FRO IV; -DIVA125C2 PO; +DIVA125T32 PO; -ESCI10TA PO; -INSU100V28 SQ; +LEVO25TA7 PO; +MAG30ORA PO; +MAGN400O6 PO; -MEGE400O5 PO; +METO100T14 PO; -METO50TA16 PO; +MULT-213 PO; -NUT.237L45 PO; +OMEP20CA15 PO; -PANT40TA49 PO; +POLY17PO4 PO; +QUET25TA PO; -Quetiapine Fumarate PO; +TRAZ-182 PO
[2025-01-27 18:54] LABS: PLATELET COUNT (AUTO) 252 K/uL (150-450); RED BLOOD CELL COUNT(AUTO) 4.33 MIL/uL (4.0-5.2); RED CELL DISTRIBUTION WIDTH 16.7 % (11.5-15.0); WHITE BLOOD COUNT (AUTO) 6.5 K/uL (4.3-11.0)
[2025-01-27 19:03] LABS: CALCIUM, SERUM 9.2 mg/dL (8.5-10.1); CREATININE 0.7 mg/dL (0.6-1.3); SODIUM SERUM 140 mmol/L (136-145); UREA NITROGEN, BLOOD 22 mg/dL (7-18)
[2025-01-27 19:10] LABS: INR 1.08 (0.91-1.10)
[2025-01-27 19:13] LABS: LACTIC ACID 2.1 mmol/L (0.4-2.0)
[2025-01-27 19:18] LABS: ALCOHOL, BLOOD < 3 mg/dL (0-10); ASPARTATE AMINOTRANSFERASE 24 U/L (15-37); TOTAL PROTEIN, SERUM 6.1 g/dL (6.4-8.2)
[2025-01-27] MEDS: IV NS 0.9% 1,000 ML BAG IV ONE (19:20)
[2025-01-27] MEDS: CEFEPIME 1 GM in IV D5W 50 ML IV ONE (19:40)
[2025-01-27 20:15] LABS: AMPHETAMINE, URINE NEGATIVE (NEGATIVE); BARBITURATE, URINE NEGATIVE (NEGATIVE); BENZODIAZEPINE, URINE NEGATIVE (NEGATIVE); CANNABINOID, URINE NEGATIVE (NEGATIVE); COCCAINE, URINE NEGATIVE (NEGATIVE); OPIATE, URINE NEGATIVE (NEGATIVE)
[2025-01-27 20:16] LABS: APPEARANCE,URINE SLIGHTLY CLOUDY (CLEAR); BLOOD, URINE NEGATIVE Ery/uL (NEGATIVE); LEUKOCYTE ESTERASE ,URINE NEGATIVE (NEGATIVE); NITRITE, URINE POSITIVE (NEGATIVE); UGLUCOSE NEGATIVE (NEGATIVE)
[2025-01-27 20:24] LABS: ADD URINE CULTURE YES
[2025-01-27] MEDS ORDERED: ACETAMINOPHEN 325 MG TABLET PO PRN (21:00)
[2025-01-27] MEDS ORDERED: ONDANSETRON HCL/PF 4 MG/2 ML VIAL IVP PRN (21:00)
[2025-01-27] MEDS ORDERED: DEXTROSE 50%-WATER 50 ML DISP.SYRIN IV PRN (21:00)
[2025-01-27] MEDS ORDERED: MAG HYDROX/AL HYDROX/SIMETH 30 ML UDC PO PRN (21:00)
[2025-01-27] MEDS ORDERED: HOME MED MISCELLANEOUS XX SCH ×2 (21:00)
[2025-01-27] MEDS ORDERED: BISACODYL SUPP (10 MG) 10 MG/SUPP.RECT SUPP.RECT RC PRN (21:00)
[2025-01-27] MEDS ORDERED: MAGNESIUM HYDROXIDE 30 ML UDC PO PRN (21:00)
[2025-01-27] MEDS ORDERED: INSULIN GLARGINE,BASAGLAR 100 UNIT/ML INSULN.PEN SQ SCH (22:00)
[2025-01-27] MEDS: QUETIAPINE FUMARATE 25 MG TABLET PO SCH (23:05)
[2025-01-27] MEDS: ATORVASTATIN 40 MG TABLET PO SCH (23:06)
[2025-01-27] MEDS: AMLODIPINE BESYLATE 5 MG TABLET PO SCH (23:07)
[2025-01-27] MEDS: TRAZODONE 50 MG TABLET PO SCH (23:07)
[2025-01-27] MEDS: METOPROLOL TARTRATE 50 MG TABLET PO SCH (23:08)
[2025-01-27] MEDS: INSULIN REGULAR, HUMAN 100 UNIT/ML 3 ML VIAL SQ PRN (23:30)
[2025-01-27] MEDS: INSULIN GLARGINE, 100 UNIT/ML CARTRIDGE SQ SCH (23:35)
[2025-01-27] MEDS: BLOOD SUGAR DIAGNOSTIC 1 EACH STRIP IN SCH (23:38)
[2025-01-28 04:00] VITALS: BP 131/64; TEMP 98.4; O2SAT 99
[2025-01-28 07:10] LABS: PLATELET COUNT (AUTO) 176 K/uL (150-450); RED BLOOD CELL COUNT(AUTO) 3.45 MIL/uL (4.0-5.2); RED CELL DISTRIBUTION WIDTH 17.1 % (11.5-15.0); WHITE BLOOD COUNT (AUTO) 5.4 K/uL (4.3-11.0)
[2025-01-28 08:18] LABS: CALCIUM, SERUM 8.4 mg/dL (8.5-10.1); CREATININE 0.6 mg/dL (0.6-1.3); PHOSPHORUS 3.8 mg/dL (2.5-4.9); SODIUM SERUM 143.0 mmol/L (136-145); UREA NITROGEN, BLOOD 27.0 mg/dL (7-18)
[2025-01-28 08:24] LABS: LDL 67.0 mg/dL (0-99)
[2025-01-28] MEDS: POLYETHYLENE GLYCOL 3350 17 GM POWD.PACK PO SCH (09:01)
[2025-01-28] MEDS: LEVOTHYROXINE SODIUM 25 MCG TABLET PO SCH (09:03)
[2025-01-28] MEDS: METFORMIN 500 MG TABLET PO SCH (09:03)
[2025-01-28] MEDS: MULTIVITAMINS,THERAGRAN 1 UDTAB TABLET PO SCH (09:03)
[2025-01-28] MEDS: ACIDOPHILUS/BULGARICUS 1 EACH TAB.CHEW PO SCH (09:03)
[2025-01-28] MEDS: PANTOPRAZOLE 40 MG TABLET.DR PO SCH (09:03)
[2025-01-28] MEDS: ASCORBIC ACID 500 MG TABLET PO SCH (09:03)
[2025-01-28] MEDS: DONEPEZIL 5 MG TABLET PO SCH (09:03)
[2025-01-28] MEDS: APIXABAN 2.5 MG TABLET PO SCH (09:05)
[2025-01-28 12:00] VITALS: BP 122/68; TEMP 98.2; O2SAT 100
[2025-01-28] MEDS: MORPHINE SULFATE INJ 2 MG/ML DISP.SYRIN IV PRN (13:45)
[2025-01-28] MEDS: CEFTRIAXONE 1 G in IV D5W 50 ML IV SCH (18:08)
[2025-01-28] MEDS: IV 1/2NS 1000 ML 1,000 ML IV PRN (18:11)
[2025-01-28 20:00] VITALS: BP 120/58; TEMP 97.2; O2SAT 98
[2025-01-29 04:00] VITALS: BP 113/61; TEMP 97.5; O2SAT 96
[2025-01-29 07:03] LABS: PLATELET COUNT (AUTO) 169 K/uL (150-450); RED BLOOD CELL COUNT(AUTO) 3.32 MIL/uL (4.0-5.2); RED CELL DISTRIBUTION WIDTH 15.9 % (11.5-15.0); WHITE BLOOD COUNT (AUTO) 6.0 K/uL (4.3-11.0)
[2025-01-29 07:16] LABS: ASPARTATE AMINOTRANSFERASE 11 U/L (15-37); CALCIUM, SERUM 8.3 mg/dL (8.5-10.1); CREATININE 0.4 mg/dL (0.6-1.3); PHOSPHORUS 2.9 mg/dL (2.5-4.9); SODIUM SERUM 141 mmol/L (136-145); TOTAL PROTEIN, SERUM 4.8 g/dL (6.4-8.2); UREA NITROGEN, BLOOD 24 mg/dL (7-18)
[2025-01-29 08:00] VITALS: O2SAT 95
[2025-01-29 09:10] LABS: IRON, SERUM 38.0 ug/dl (50-175)
[2025-01-29] MEDS: Magnesium 1GM/D5W 100ML PREMIX 100 ML IV SCH (10:46)
[2025-01-29] MEDS ORDERED: IOHEXOL-350 100 ML VIAL IV ONE (11:23)
[2025-01-29 16:00] VITALS: BP 135/52; TEMP 97.7; O2SAT 97
[2025-01-29] MEDS: FERROUS SULFATE (325 MG) 325 MG/TAB TABLET PO SCH (16:35)
[2025-01-29 20:00] VITALS: BP 129/68; TEMP 97.7; O2SAT 98
[2025-01-30 04:00] VITALS: BP 121/60; TEMP 97.5; O2SAT 98
[2025-01-30 06:35] LABS: PLATELET COUNT (AUTO) 192 K/uL (150-450); RED BLOOD CELL COUNT(AUTO) 3.61 MIL/uL (4.0-5.2); RED CELL DISTRIBUTION WIDTH 16.4 % (11.5-15.0); WHITE BLOOD COUNT (AUTO) 7.3 K/uL (4.3-11.0)
[2025-01-30 07:34] LABS: ASPARTATE AMINOTRANSFERASE 12 U/L (15-37); CALCIUM, SERUM 8.7 mg/dL (8.5-10.1); CREATININE 0.3 mg/dL (0.6-1.3); PHOSPHORUS 2.9 mg/dL (2.5-4.9); SODIUM SERUM 141 mmol/L (136-145); TOTAL PROTEIN, SERUM 5.1 g/dL (6.4-8.2); UREA NITROGEN, BLOOD 12 mg/dL (7-18)
[2025-01-30 08:00] VITALS: BP 123/79; TEMP 98.1; O2SAT 100
[2025-01-30 16:00] VITALS: BP 119/70; TEMP 98.3; O2SAT 92
[2025-01-30 20:00] VITALS: BP 122/58; TEMP 97.2; O2SAT 92
[2025-01-31 04:00] VITALS: BP 127/67; TEMP 97.5; O2SAT 95
[2025-01-31 08:00] VITALS: BP 139/71; TEMP 97.1; O2SAT 99
[2025-01-31 08:07] LABS: AFP, TUMOR MARKER 2.3 ng/mL (0.0-8.7); CARBOHYDRATE AG 19-9 17 U/mL (0-35); CARCINOEMBRYONIC ANTIGEN (CEA) 3.0 ng/mL (0.0-4.7); FOLIC ACID 7.0 ng/mL (>3.0)
[2025-01-31 08:07] LABS: IMMUNOGLOBULIN A, SERUM 112 mg/dL (64-422); IMMUNOGLOBULIN M, SERUM 42 mg/dL (26-217)
[2025-01-31 16:00] VITALS: BP 117/66; TEMP 97.8; O2SAT 96
[2025-01-31] MEDS: Z GUARD REMEDY 4 OZ OINT TP PRN (17:57)
[2025-01-31 21:07] LABS: HEPATITIS B CORE AB, TOTAL Negative (Negative)
[2025-02-01 11:08] LABS: *SPE A/G RATIO 1.2 (0.7-1.7); *SPE ALBUMIN 2.6 g/dL (2.9-4.4); *SPE ALPHA-1-GLOBULIN 0.2 g/dL (0.0-0.4); *SPE ALPHA-2-GLOBULIN 0.7 g/dL (0.4-1.0); *SPE BETA GLOBULIN 0.8 g/dL (0.7-1.3); *SPE GLOBULIN, TOTAL 2.1 g/dL (2.2-3.9); *SPE M-SPIKE Not Observed g/dL (Not Observed); *SPE PROTEIN TOTAL 4.7 g/dL (6.0-8.5); *SPEGAMMA GLOBULIN 0.5 g/dL (0.4-1.8)
== END 2025-01-31 20:07 | DRG 689 ==
LOC: ER 18:29 → MEDSG1 21:04
PROVIDERS: ADMIT Nurse Practitioner Acute Care; ATTEND Nurse Practitioner Acute Care
PROC: 05HC33Z Insertion of Infusion Device into Left Basilic Vein, Percutaneous Approach (ICD-10-PCS; principal; 2025-01-30)
DX: N39.0 Urinary tract infection, site not specified (principal); G93.41 Metabolic encephalopathy; E87.20 Acidosis, unspecified; F02.82 Dementia in other diseases classified elsewhere, unspecified severity, with psychotic disturbance; R45.851 Suicidal ideations; E11.9 Type 2 diabetes mellitus without complications; D18.03 Hemangioma of intra-abdominal structures; D64.9 Anemia, unspecified; Z79.01 Long term (current) use of anticoagulants; F33.9 Major depressive disorder, recurrent, unspecified; E03.9 Hypothyroidism, unspecified; I11.9 Hypertensive heart disease without heart failure; Z95.2 Presence of prosthetic heart valve; F02.83 Dementia in other diseases classified elsewhere, unspecified severity, with mood disturbance; F02.84 Dementia in other diseases classified elsewhere, unspecified severity, with anxiety; D35.02 Benign neoplasm of left adrenal gland; G30.9 Alzheimer's disease, unspecified; I25.10 Atherosclerotic heart disease of native coronary artery without angina pectoris; E86.0 Dehydration; G89.4 Chronic pain syndrome; Z86.711 Personal history of pulmonary embolism; Z86.718 Personal history of other venous thrombosis and embolism; N28.1 Cyst of kidney, acquired; K44.9 Diaphragmatic hernia without obstruction or gangrene; E78.5 Hyperlipidemia, unspecified; Z79.899 Other long term (current) drug therapy; Z79.4 Long term (current) use of insulin; Z79.84 Long term (current) use of oral hypoglycemic drugs; Z95.5 Presence of coronary angioplasty implant and graft; K57.30 Diverticulosis of large intestine without perforation or abscess without bleeding
CPT/HCPCS: 36415; 71045-TC; 71260-TC; 74183; 80048-TC; 80053-TC; 80061-TC; 80076-TC; 81001; 82105; 82378; 82607-TC; 82728-TC; 82784; 82962-TC; 83540-TC; 83605-TC; 83735-TC; 84100-TC; 84155; 84165; 84443-TC; 84484-TC; 85025-TC; 85730-TC; 86301; 86317; 86334; 86704; 86803; 87040-TC; 87086-TC; 87340; 93970-TC; 94799-TC; 97110-TC; 97116-TC; 97530-TC; A4223; G0378; G0480; J0692; J0696; J1815; J2270; J3475; J3490; J7030; J7040; J7060; Q9967